=== PATIENT | female | born 1960 | race Caucasian/White ===

== ENCOUNTER 2023-11-06 14:22 | Observation (INO) ==
--- NOTE | 2023-11-06 14:50 | ED Triage Note ---
Date of Service November 06, 2023 Provider in Triage Author: Aleshia Villa History of Present Illness This patient was briefly evaluated while in triage. An abbreviated physical exam was performed. This patient is a 63-year-old Female who presents to the ED for evaluation of abdominal pain, vomiting, and diarrhea. Symptoms ongoing since Monday. Has history of C-diff and dehydration. Pain Left flank. Physical Exam VITALS: Vitals are noted on the nurse's note and reviewed by myself. GENERAL: This is a 63 year old female, in no acute distress, nondiaphoretic, well-developed well-nourished. SKIN: No obvious rashes, edema, erythema HEAD: Normocephalic atraumatic. EYES: Conjunctivae without injection, sclerae without icterus. NECK: No JVD. LUNGS: No retractions or accessory muscle use. MUSCULOSKELETAL: Normal gait. NEURO: Patient was alert and oriented to person place and time. No focal neurological deficits. Initial orders for labs and / or imaging were placed and patient was placed in the waiting area until a bed is available. Please see further documentation for the full ED course.
[2023-11-06] MEDS: SODIUM CHLORIDE 0.9% 1,000 ML IV STA (15:56)
[2023-11-06] MEDS: ONDANSETRON INJ 2 MG/ML 2 ML VIAL IV STA (15:56)
[2023-11-06 16:15] LABS: Basophils # (auto) 0.05 K/uL (0.00-0.20); Basophils % (auto) 0.6 %; Eosinophils # (auto) 0.02 K/uL (0.00-0.50); Eosinophils % (auto) 0.3 %; Hematocrit (blood only) 36.6 % (37.0-47.0); Immature Granulocytes # (auto) 0.03 K/uL (0.01-0.20); Immature Granulocytes % (auto) 0.4 %; Lymphocytes # (auto) 0.97 K/uL (1.20-3.40); Lymphocytes % (auto) 12.1 %; Mean Corpuscular Hemoglobin 30.9 pg (25.0-34.0); Mean Corpuscular Hgb Conc 32.8 g/dL (32.0-36.0); Mean Corpuscular Volume 94.3 fL (80.0-100.0); Mean Platelet Volume 8.7 fL (9.4-12.4); Monocytes # (auto) 0.36 K/uL (0.11-0.59); Monocytes % (auto) 4.5 %; Neutrophils # (auto) 6.56 K/uL (1.40-6.50); Neutrophils % (auto) 82.1 %; Platelet Count 339 K/uL (130-400); RDW Coefficient of Variation 13.2 % (11.5-14.5); RDW Standard Deviation 46.2 fL (36.4-46.3); Red Blood Count 3.88 M/uL (4.20-5.40); White Blood Count 7.99 K/ul (4.8-10.8)
[2023-11-06 16:32] LABS: Albumin Globulin Ratio 1.2 (0.9-2); Albumin Level 4.6 gm/dl (3.4-5.0); BUN Creatinine Ratio 27.8 (10-20); Bilirubin,Total 0.4 mg/dl (0.2-1.0); Calcium 9.8 mg/dl (8.6-10.3); Creatinine Clr Calc Pharmacy 22.4 ml/min; Est GFR (African American) 24.8 ml/min; Est GFR (Non-African American) 21.4 ml/min; Globulin 3.9 gm/dl (2.5-4.0); Potassium 4.8 mmol/L (3.5-5.1); Total Protein 8.5 gm/dl (6.0-8.3)
--- NOTE | 2023-11-06 16:43 | Emergency Department Note ---
Impression & Plan ANABELA (acute kidney injury), Diarrhea, Hyponatremia, Dehydration ED Provider Note NAME: GERTRUDE ANSARI AGE: 63 SEX: F : 1960 ARRIVES VIA: Walk-In INFORMANT: Patient ED PROVIDER(S): Earl Duarte DO CHIEF COMPLAINT: Diarrhea and left lower quadrant abdominal pain HPI: Patient is a 63-year-old female with a past medical history of breast cancer who just finished up chemotherapy back in June. She notes that on and Monday she started having left lower quadrant abdominal pain associated with diarrhea. The lower quadrant abdominal pain was sharp and stabbing but has improved and is now achy. She is going about 6-7 times a day. She denies any dysuria, urgency, or frequency. She noticed some blood in her stool on Monday but that has abated now. She has not had any blood since Monday. Denies any black or dark tarry stools. No dysuria, urgency, or frequency. She does have a history of previous C. difficile. No recent trips or travel. ADDITIONAL HISTORY OBTAINED: Per HPI Chronic Medical/Social Conditions Affecting Care: Per HPI PAST MEDICAL HISTORY:See Below PAST SURGICAL HISTORY:See Below FAMILY HISTORY:See Below SOCIAL HISTORY:See Below HOME MEDICATIONS:See Below ALLERGIES:See Below VITALS:See Below PHYSICAL EXAMINATION: GENERAL: Sitting up in bed, alert, well appearing, well nourished, no distress, non-toxic EYE EXAM: normal conjunctiva. OROPHARYNX: mucous membranes are moist LUNGS: Clear to auscultation. Normal chest wall mechanics HEART: no murmurs, S1 normal and S2 normal ABDOMEN: abdomen soft, non-tender, normo-active bowel sounds, no masses, no rebound or guarding. BACK: Back is symmetrical on inspection and there is no deformity, no midline tenderness, no CVA tenderness. SKIN: no rashes and no bruising UPPER EXTREMITIES: upper extremities are grossly normal. LOWER EXTREMITIES: No pitting edema. NEURO EXAM: Normal sensorium, cranial nerves II-XII grossly intact, normal speech, no gross weakness of arms, no gross weakness of legs. MEDICAL DECISION MAKING: Patient is a 63-year-old female who presents the ER for diarrhea and abdominal pain. IV was established blood work was obtained. Labs show no significant leukocytosis or anemia. INR unremarkable. BMP with mild hyponatremia 134. Creatinine at 2.37. External records were reviewed from [facility] in regards to her creatinines which showed history of her creatinines ranging from 1.0-1.4. Last 1 was back in June it was 1.3. Do favor this is likely her baseline 1.3-1.2. LFTs and bilirubin were unremarkable. Lipase was normal. UA was clean. She was given 2 L of normal saline. Ordered stool cultures. CT abdomen pelvis was unremarkable. She was updated bedside discussed with the hospitalist admitted for further workup. Consults/Care Managements Discussions: Per [facility] Triage Nursing notes reviewed. Limited review of prior medical records performed Vital Signs: reviewed and remarkable for no significant abnormalities Differential diagnosis: Differential diagnoses includes but is not limited to gastritis, peptic ulcer disease, GERD, gallbladder disease, pancreatitis, small bowel obstruction, appendicitis, diverticulitis, hernia, urinary tract infection, torsion, perforation, trauma, infectious. ER treatment provided: See below Diagnostics interpreted by me include EKG and cardiac monitoring as listed below: -Cardiac Monitoring: An order was placed for continuous cardiac monitoring. The monitor shows a rate of 70 with sinus rhythm. -ECG: none -Laboratory studies:Interpreted by me as stated above in MDM and shown below. 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) Status post partial mastectomy of right breast 06/19/20 - complicated by return to OR same day for evacuation of right breast hematoma Breast cancer, right Biopsy 05/26/20 Medical History (Updated 11/06/23 @ 19:30 by Earl Duarte DO) Depression Surgical History (Updated 07/29/20 @ 09:18 by Aisha Osman, FELISHA) History of dental surgery H/O tubal ligation History of sinus surgery Family History (Updated 07/29/20 @ 09:22 by Aisha Osman, FELISHA) Mother Dyslipidemia Thyroid disease Parkinsons Father , 86yo Seizure disorder Traumatic injuries to brain; Grandmother (Maternal) Breast cancer Family/Other Breast cancer Maternal cousin Family/Other Ovarian cancer Maternal great aunt Brother Thyroid disease Sleep apnea Hypertension Sister No problems noted. Son No problems noted. 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[employer];Caregiver also Feels Safe at Home: Yes Childhood Exposure to Second-Hand Smoke: No Diet: regular caffeine: No during the past year weight has: remained stable Allergies Allergies Allergy/AdvReac Type Severity Reaction Status Date / Time No Known Allergies Allergy Verified 11/06/23 19:05 Home Meds Home Medications Medication Instructions Recorded Confirmed acetaminophen 325 mg tablet 650 mg PO QID PRN Pain/Fever 07/29/20 11/06/23 (Tylenol) escitalopram oxalate 20 mg tablet 20 mg PO DAILY 11/06/23 11/06/23 lisinopril 20 mg tablet 20 mg PO DAILY 11/06/23 11/06/23 ondansetron HCl 8 mg tablet 8 mg PO Q8H PRN Nausea And Vomiting 11/06/23 11/06/23 Results & Data (ED) Vital Signs Vital Signs - 24 hr 11/06/23 14:48 11/06/23 17:30 11/06/23 17:33 Temperature 36.3 C L Temperature Source Temporal Artery Scan Pulse Rate 91 H 79 Pulse Rate [Apical] 82 Pulse Rhythm [Apical] Respiratory Rate 18 13 Respiratory Effort / Characteristics Non-Labored Non-Labored Respiratory Depth Normal Normal Respiratory Pattern Regular Regular Blood Pressure 116/72 Blood Pressure [Left Arm] 167/89 H Blood Pressure Mean 86 Blood Pressure Mean [Left Arm] 115 Pulse Oximetry 97 99 Oxygen Delivery Method Room Air Room Air Sepsis Recent Fever Within 48 Hours No Sepsis New/Unexplained Change in Mental Status N/A Sepsis Action Taken by Nursing No Action Required 11/06/23 18:56 11/06/23 19:20 Temperature Temperature Source Pulse Rate Pulse Rate [Apical] 73 Pulse Rhythm [Apical] Regular Respiratory Rate 16 Respiratory Effort / Characteristics Respiratory Depth Normal Respiratory Pattern Blood Pressure Blood Pressure [Left Arm] 139/76 Blood Pressure Mean Blood Pressure Mean [Left Arm] 97 Pulse Oximetry 100 100 Oxygen Delivery Method Room Air Room Air Sepsis Recent Fever Within 48 Hours Sepsis New/Unexplained Change in Mental Status Sepsis Action Taken by Nursing Laboratory Data 11/06/23 15:53 11/06/23 15:53 Lab Results 11/06/23 11/06/23 Range/Units 15:53 18:00 WBC 7.99 (4.8-10.8) K/ul RBC 3.88 L (4.20-5.40) M/uL Hgb 12.0 (12.0-16.0) g/dl Hct 36.6 L (37.0-47.0) % MCV 94.3 (80.0-100.0) fL MCH 30.9 (25.0-34.0) pg MCHC 32.8 (32.0-36.0) g/dL RDW Std Deviation 46.2 (36.4-46.3) fL RDW Coeff of Aaron 13.2 (11.5-14.5) % Plt Count 339 (130-400) K/uL MPV 8.7 L (9.4-12.4) fL Immature Gran % (Auto) 0.4 % Neut % (Auto) 82.1 % Lymph % (Auto) 12.1 % [place] % (Auto) 4.5 % Eos % (Auto) 0.3 % Baso % (Auto) 0.6 % Neut # (Auto) 6.56 H (1.40-6.50) K/uL Lymph # (Auto) 0.97 L (1.20-3.40) K/uL [place] # (Auto) 0.36 (0.11-0.59) K/uL Eos # (Auto) 0.02 (0.00-0.50) K/uL Baso # (Auto) 0.05 (0.00-0.20) K/uL Immature Gran # (Auto) 0.03 (0.01-0.20) K/uL PT 10.4 (9.0-12.0) Seconds INR 1.0 (0.9-1.1) APTT 26 (21-31) Seconds PTT Ratio 1.0 Sodium 134 L (136-145) mmol/L Potassium 4.8 (3.5-5.1) mmol/L Chloride 103 (98-107) mmol/L Carbon Dioxide 21 (21-32) mmol/L Anion Gap 10 (3-11) BUN 66 H (6-23) mg/dl Creatinine 2.37 H (0.6-1.2) mg/dl Est Cr Clr Drug Dosing 22.4 ml/min Est GFR ( Amer) 24.8 ml/min Est GFR (Non-Af Amer) 21.4 ml/min BUN/Creatinine Ratio 27.8 H (10-20) Glucose 80 (70-99(Fasting)) mg/dl Calcium 9.8 (8.6-10.3) mg/dl Total Bilirubin 0.4 (0.2-1.0) mg/dl AST 20 (13-39) U/L ALT 14 (7-52) U/L Alkaline Phosphatase 77 (34-104) U/L Total Protein 8.5 H (6.0-8.3) gm/dl Albumin 4.6 (3.4-5.0) gm/dl Globulin 3.9 (2.5-4.0) gm/dl Albumin/Globulin Ratio 1.2 (0.9-2) Lipase 16 (11-82) U/L Urine Color Yellow Urine Appearance Clear (Clear) Urine pH 5.0 (4.5-7.5) Ur Specific [place] 1.013 (1.000-1.030) Urine Protein Negative (Negative) Urine Glucose (UA) Negative (Negative) Urine Ketones Trace H (Negative) Urine Blood Negative (Negative) Urine Nitrite Negative (Negative) Urine Bilirubin Negative (Negative) Urine Urobilinogen Negative (Negative) Ur Leukocyte Esterase Negative (Negative) Administered Medications Sodium Chloride (Nss) 1,000 mls @ 999 mls/hr IV .Q1H1M ONE Stop: 11/06/23 19:29 Last Admin: 11/06/23 18:41 Dose: 999 mls/hr Documented By: MONTSERRAT Discontinued Medications Sodium Chloride (Nss) 1,000 mls @ 999 mls/hr IV .Q1H1M STA Stop: 11/06/23 15:50 Last Infusion: 11/06/23 17:59 Dose: Infused Documented By: Admin: 11/06/23 15:56 Dose: 999 mls/hr Documented By: JOHN Ondansetron HCl (Ondansetron Inj 2 Mg/Ml 2 Ml Vial) 4 mg IV NOW STA Stop: 11/06/23 14:51 Last Admin: 11/06/23 15:57 Dose: Not Given Documented By: JOHN Imaging Data Radiologist's Impression: Abdomen/Pelvis CT 11/06/23 14:50 CT SCAN OF THE ABDOMEN AND PELVIS WITHOUT IV CONTRAST CLINICAL HISTORY: Left flank pain. COMPARISON STUDY: Abdominal ultrasound dated 03/30/2012. TECHNIQUE: CT scan of the abdomen and pelvis is performed from the lung bases to the proximal femora. Images are reviewed in the axial, sagittal, and coronal planes. IV contrast was not administered for this examination. A dose lowering technique was utilized adhering to the principles of ALARA. CT DOSE: 1069.03 mGy.cm FINDINGS: Lung bases: The heart is normal in size and without pericardial effusion. The lung bases are clear noting mild dependent atelectasis. Findings suggest a history of previous right mastectomy. There is a small hiatal hernia. Liver: The unenhanced liver is normal in size, contour, and attenuation. There is no intrahepatic biliary ductal dilatation. Gallbladder: Unremarkable. Spleen: Normal in size and attenuation. Pancreas: The unenhanced pancreas is moderately atrophic and grossly unremarkable. Adrenal glands: Unremarkable. Kidneys: The unenhanced kidneys are normal in size and without hydronephrosis. No renal calculi are identified and no ureteral stone is seen. There is no evidence of contour deforming renal mass lesion. Abdominal vasculature: The abdominal aorta is normal in course and caliber noting mild atherosclerotic calcification. Bowel: There is no bowel obstruction. Question mild wall thickening of the left colon with faint surrounding infiltration. The appendix is multiple visualized and normal. Peritoneum: There is no intraperitoneal free air or abdominal ascites. There is a small fat-containing umbilical hernia. Lymphadenopathy: None. Pelvic viscera: The bladder, uterus, and adnexa are normal as visualized. Skeletal structures: No lytic or blastic lesions are seen. IMPRESSION: 1. Question a mild nonspecific colitis of the left colon. Correlate clinically. 2. No renal calculi are identified and there is no ureteral stone. 3. Additional findings as above. ACT 112: Negative or not required by law. Electronically signed by: Chandler Silva M.D. 11/06/2023 4:43 PM Discharge Plan Visit Data Chief Complaint: GI Assessment Stated Complaint: GI ISSUES, FLANK PAIN, DIARHEA ED Provider: Earl Duarte Discharge Problem: ANABELA (acute kidney injury), Diarrhea, Hyponatremia, Dehydration Forms Stand Alone Forms: My [facility] Prescriptions Prescriptions: No Action acetaminophen [Tylenol] 325 mg tablet 650 mg PO QID PRN (Reason: Pain/Fever) ondansetron HCl 8 mg tablet 8 mg PO Q8H PRN (Reason: Nausea And Vomiting) lisinopril 20 mg tablet 20 mg PO DAILY escitalopram oxalate 20 mg tablet 20 mg PO DAILY Referrals Referrals: Magaly Covington CRNP [Primary Care Provider] - Discharge Problem: Diarrhea Qualifiers: Diarrhea type: infectious Qualified Code(s): A09 - Infectious gastroenteritis and colitis, unspecified
[2023-11-06 16:53] LABS: Partial Thromboplastin Time 26 Seconds (21-31); Prothrombin Time 10.4 Seconds (9.0-12.0)
[2023-11-06 18:10] LABS: Appearance Urine Clear (Clear); Bilirubin Urine Negative (Negative); Blood Urine Negative (Negative); Color Urine Yellow; Glucose Urine UA Negative (Negative); Ketones Urine Trace (Negative); Leukocyte Esterase Urine Negative (Negative); Nitrite Urine Negative (Negative); Protein Urine Negative (Negative); Specific Gravity Urine 1.013 (1.000-1.030); Urobilinogen Urine Negative (Negative)
[2023-11-06] MEDS: SODIUM CHLORIDE 0.9% 1,000 ML IV ONE (18:41)
--- NOTE | 2023-11-06 19:13 | History & Physical Report ---
Date of Service November 06, 2023 Assessment & Plan (1) Diarrhea: Plan: Suspected colitis as seen on CT - already improving Stool and c. diff PCR Imodium if negative Follow up with GI to consider colonoscopy as outpatient (2) ANABELA (acute kidney injury): Plan: Baseline Cr 1.37 October 04, 2023 Cr 2.37 on arrival Hold lisinopril LR @ 200ml/hr overnight, repeat level in AM (3) Dehydration: Plan VTE Prophylaxis - heparin 5000 units SQ BID Diet - low fiber Disposition - admit to med/surg Admission and Anticipated Discharge Date Admission Date: November 06, 2023 History of Present Illness Chief Complaint: Abdominal pain, vomiting, diarrhea Primary Care Provider: [place] Dang Bryant Galeano is a 63 year old female who presents to the ER with LUQ abdominal pain, vomiting and diarrhea since Monday. Symptoms started night into Monday morning. Initially with nausea, vomiting and sweating. She felt like she couldn't go to bathroom. After 8s she started having waves of left sided abdominal pain. Diarrhea followed. On Monday her diarrhea was mucus with blood. Monday still mucus but no blood. Took Pepto-Bismol but just turned it dark brown. No bowel movement since this morning. No fever, chills, acute respiratory or urinary symptoms. Chronic cough which she blames on lisinopril and no worse than usual. She finished chemotherapy for breast cancer in June. During treatment had episode of diarrhea and separate episode of c. diff (July 2022). Allergies Allergy/AdvReac Type Severity Reaction Status Date / Time No Known Allergies Allergy Verified 11/06/23 19:05 Home Medications Medication Instructions Recorded Confirmed Type acetaminophen 325 mg tablet 650 mg PO QID PRN Pain/Fever 07/29/20 11/06/23 History (Tylenol) escitalopram oxalate 20 mg tablet 20 mg PO DAILY 11/06/23 11/06/23 History lisinopril 20 mg tablet 20 mg PO DAILY 11/06/23 11/06/23 History ondansetron HCl 8 mg tablet 8 mg PO Q8H PRN Nausea And Vomiting 11/06/23 11/06/23 History Past Med/Surg History Problem List (Updated 11/06/23 @ 19:30 by Earl Duarte DO) Dehydration (Acute) Hyponatremia (Acute) Diarrhea (Acute) ANABELA (acute kidney injury) (Acute) 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) Status post partial mastectomy of right breast 06/19/20 - complicated by return to OR same day for evacuation of right breast hematoma Breast cancer, right Biopsy 05/26/20 Medical History (Updated 11/06/23 @ 19:30 by Earl Duarte DO) Depression Surgical History (Updated 07/29/20 @ 09:18 by Aisha Osman, FELISHA) History of dental surgery H/O tubal ligation History of sinus surgery Family History (Updated 07/29/20 @ 09:22 by Aisha Osman, FELISHA) Mother Dyslipidemia Thyroid disease Parkinsons Father , 86yo Seizure disorder Traumatic injuries to brain; Grandmother (Maternal) Breast cancer Family/Other Breast cancer Maternal cousin Family/Other Ovarian cancer Maternal great aunt Brother Thyroid disease Sleep apnea Hypertension Sister No problems noted. Son No problems noted. 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[employer];Caregiver also Feels Safe at Home: Yes Safety Concerns: Feels Safe At This Time Childhood Exposure to Second-Hand Smoke: No Diet: regular caffeine: No during the past year weight has: remained stable Assistive Devices: Glasses Review of Systems Review of Systems: All systems reviewed & are unremarkable except as noted in HPI & below Physical Exam Constitutional: WD/WN, vitals as above ENMT: Mouth: oral mucous membranes not dry Respiratory: normal respiratory effort, lungs clear to auscultation Cardiovascular: RRR, no murmur, no edema Gastrointestinal (Abdomen): Inspection/Auscultation: abdomen normal to inspection; abdomen not distended Percussion/Palpation: + abdomen tender (LLQ) and abdomen soft; no guarding and abdomen not rigid Skin: no rashes, warm and dry Neurologic: moves all extremities and awake; not confused Psychiatric: A+Ox3, euthymic affect Genitourinary: no CVA tenderness Results & Data Results & Data Vital Signs (Past 12 Hours) Vital Signs Temp Pulse Pulse Resp BP BP Pulse Ox 11/06/23 18:56 100 11/06/23 17:33 79 11/06/23 17:30 82 13 167/89 H 99 11/06/23 14:48 36.3 C L 91 H 18 116/72 97 O2 Del Method 11/06/23 18:56 Room Air 11/06/23 17:33 11/06/23 17:30 Room Air 11/06/23 14:48 Room Air Laboratory Results Abnormal lab results 11/06/23 11/06/23 Range/Units 15:53 18:00 RBC 3.88 L (4.20-5.40) M/uL Hct 36.6 L (37.0-47.0) % MPV 8.7 L (9.4-12.4) fL Neut # (Auto) 6.56 H (1.40-6.50) K/uL Lymph # (Auto) 0.97 L (1.20-3.40) K/uL Sodium 134 L (136-145) mmol/L BUN 66 H (6-23) mg/dl Creatinine 2.37 H (0.6-1.2) mg/dl BUN/Creatinine Ratio 27.8 H (10-20) Total Protein 8.5 H (6.0-8.3) gm/dl Urine Ketones Trace H (Negative) Diagnostic Findings CT SCAN OF THE ABDOMEN AND PELVIS WITHOUT IV CONTRAST CLINICAL HISTORY: Left flank pain. COMPARISON STUDY: Abdominal ultrasound dated 03/30/2012. TECHNIQUE: CT scan of the abdomen and pelvis is performed from the lung bases to the proximal femora. Images are reviewed in the axial, sagittal, and coronal planes. IV contrast was not administered for this examination. A dose lowering technique was utilized adhering to the principles of ALARA. CT DOSE: 1069.03 mGy.cm FINDINGS: Lung bases: The heart is normal in size and without pericardial effusion. The lung bases are clear noting mild dependent atelectasis. Findings suggest a history of previous right mastectomy. There is a small hiatal hernia. Liver: The unenhanced liver is normal in size, contour, and attenuation. There is no intrahepatic biliary ductal dilatation. Gallbladder: Unremarkable. Spleen: Normal in size and attenuation. Pancreas: The unenhanced pancreas is moderately atrophic and grossly unremarkable. Adrenal glands: Unremarkable. Kidneys: The unenhanced kidneys are normal in size and without hydronephrosis. No renal calculi are identified and no ureteral stone is seen. There is no evidence of contour deforming renal mass lesion. Abdominal vasculature: The abdominal aorta is normal in course and caliber noting mild atherosclerotic calcification. Bowel: There is no bowel obstruction. Question mild wall thickening of the left colon with faint surrounding infiltration. The appendix is multiple visualized and normal. Peritoneum: There is no intraperitoneal free air or abdominal ascites. There is a small fat-containing umbilical hernia. Lymphadenopathy: None. Pelvic viscera: The bladder, uterus, and adnexa are normal as visualized. Skeletal structures: No lytic or blastic lesions are seen. IMPRESSION: 1. Question a mild nonspecific colitis of the left colon. Correlate clinically. 2. No renal calculi are identified and there is no ureteral stone. 3. Additional findings as above. Medications Administered ER Medications Given: NSS 1L bolus x2 Ondansetron 4mg IV ECG Additional Comments: ordered Code Status & VTE Plan Code Status Full VTE Prophylaxis Plan VTE Prophylaxis will be ordered: Yes PG Care Time/CCT Total # of Minutes Spent Total Time Spent with Patient: Total time spent is greater than 50% in coordination of care (as documented) at patient's floor/unit and/or counseling patient: Coding Level of Care Code 80739 INT INP/OBS CARE 2/55MIN Diagnoses Diarrhea A09 Diarrhea type: infectious ANABELA (acute kidney injury) N17.9 Dehydration E86.0 (1) Diarrhea Diarrhea type: infectious Qualified Code(s): A09 - Infectious gastroenteritis and colitis, unspecified
[2023-11-06] MEDS: LACTATED RINGER'S 1,000 ML IV SCH (20:08)
[2023-11-06] MEDS ORDERED: ACETAMINOPHEN 325 MG TAB PO PRN (22:53)
[2023-11-06] MEDS ORDERED: ONDANSETRON INJ 2 MG/ML 2 ML VIAL IV PRN (22:53)
[2023-11-07] MEDS: HEPARIN SOD 5,000 UNIT/0.5 ML VIAL SQ SCH (00:48)
--- OUTSIDE RECORDS SUMMARY | 2023-11-07 02:27 | External Medical Summary | Continuity of Care Document ---
Author Name Unknown Organization [facility] Address [address] [place] [address] JORGE DIAZ [id number] Care Team Providers Care Wireless Cellular Technician Name Role Phone Magaly Covington Primary Care Physician [phone] Encounter [facility] [id number] Date(s): 10/04/23 - 10/04/23 [facility] [id number], [place] [address]- [phone] Encounter Diagnosis Breast cancer in female(Discharge Diagnosis) - 10/04/23 HER2-positive carcinoma of breast(Discharge Diagnosis) - 10/04/23 Post-menopausal(Discharge Diagnosis) - 10/04/23 Discharge Disposition: Home or Self Care Attending Physician: MD Paddy, Maggy Ferris Referring Physician: WASHINGTON Covington Shari A Allergies, Adverse Reactions, Alerts No Known Allergies Assessment and Plan Extracted from: Title:Port removal 10/17/2023 Author:JORGE Conner Holly Date:10/05/23 INTERVENTIONAL RADIOLOGY OUTPATIENT NOTE Name: GERTRUDE ANSARI Patient Number: [id number] : 1960 Date of Service: 10/05/2023 PROCEDURE: IR Venous Port Removal SCHEDULED DATE: 10/17/2023 Diet and Medications: No food after midnight except for clear non-carbonated liquids up to 1 hour prior to arrival time. Take all prescribed medications with small sips of water except as directed below. Other Orders: Immunizations Given and Recorded Vaccine Date Status Refusal Reason influenza virus vaccine, inactivated 1 02/09/23 Gi janet influenza virus vaccine, inactivated 02/28/19 Give n influenza virus vaccine, inactivated 02/01/18 Give n SARS-CoV-2 (COVID-19) mRNA-1273 vaccine 04/22/21 R ecorded SARS-CoV-2 (COVID-19) mRNA-1273 vaccine 2 06/12/20 Recorded SARS-CoV-2 (COVID-19) mRNA-1273 vaccine 3 05/14/20 Recorded hepatitis B adult vaccine 07/03/18 Given hepatitis B adult vaccine 02/01/18 Given hepatitis B adult vaccine 12/28/17 Given tetanus/diphtheria/pertuss, acel (Tdap) 12/01/17 G iven tetanus/diphtheria/pertuss, acel (Tdap) 03/21/08 R ecorded 1Result Comment: Linda Gomez Lpn 2Result Comment: 2021-04-23: Historical information-source unspecified 3Result Comment: 2021-04-23: Historical information-source unspecified Medications Claritin Start: 08/03/22 8:33:00 AM EDT, See Instructions, 1 po daily PRN, PRN: as needed for allergy symptoms Start Date: 08/03/22 Status: Ordered escitalopram 20 mg oral tablet Start: 04/11/23 3:01:00 PM EST, See Instructions, Disp# 30 tab, Refills: 11, TAKE ONE TABLET BY MOUTH EVERY DAY, Pharmacy: [facility] Start Date: 04/11/23 Status: Ordered lisinopril 20 mg oral tablet Start: 04/11/23 3:01:00 PM EST, 1 tab, PO, Daily, Disp# 30 tab, Refills: 11, Pharmacy: [email or web address] Start Date: 04/11/23 Status: Ordered ondansetron 8 mg oral tablet Start: 10/04/23 11:26:00 AM EDT, 8 mg =, PO, q8h, Disp# 50 tab, Refills: 3, PRN: nausea and vomiting, Pharmacy: [facility] Start Date: 10/04/23 Status: Ordered Tylenol Start: 05/04/17 8:30:00 AM EST, 500 mg =, PO, as needed Start Date: 05/04/17 Status: Ordered Mental Status 10/04/23 Barriers to Learning one year Vision imp airment, Other: glasses Mandatory Health Literacy Documentation Yes Health Literacy Communication Barriers N ever Primary Language Trinidadian Problem List Condition Confirmation Course Effective Dates Status Health Status Informant Anxiety Confirmed Active Depression Confirmed Active TMJ (dislocation of temporomandibular joint) Confirmed Active Heartburn Confirmed Active Hiatal hernia Confirmed Active S/P bilateral mastectomy Confirmed Active History of bilateral breast cancer Confirmed Active Hypertension Confirmed Active Malignant neoplasm of left breast Confirmed Active Pre-op exam Confirmed Active Hypovitaminosis D Confirmed Active Diagnosis Diagnosis Type Effective Dates Health Status Cl inical Service Informant HER2-positive carcinoma of breast Discharge Diagnosis 10/04/23 Non-Specified Post-menopausal Discharge Diagnosis 10/04/23 Non-Specified Breast cancer in female Discharge Diagnosis 10/04/23 Non-Specified Procedures Procedure Date Related Diagnosis Body Site Status Bilateral mastectomy 12/23/22 Comp leted Partial mastectomy of left breast 06/10/22 Completed Biopsy of breast 1 03/28/22 Comple lev Right breast 2 06/19/20 Completed Biopsy of breast 3, 4 05/26/20 Com pleted X-ray 5 11/02/18 Completed MRI of breast 6 Completed oral surgery Completed sinus surgery Completed tubal ligation Completed 1Left DCIS 2partial mastectomy 3Right breat 4Pathology: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 Nuclear grade: 3 Greatest linear extent: 2mm. Necrosis: none. Microcalcifications: Not identified. Prognostic markers: ER:Positive, strong staining(91-100%). MT: Positive, strong staining ((21-30%) 5xr lumbar spine 2-3v there is a mild dextroscoliosis of manuelito lubar spine. vertebral body heights are maintained. there isno fracture or suspicious lesion. 6Both Breasts. ACR BI-RADS Category 0: Incomplete evaluation: Need Additional Imaging Evaluation 1.Segmental non-mass enhancement seen with the left 12:00 breast extending to the subareolar breast, measuring approximately 2.6x4.8x4.2 cm in extent. Findings are indeterminate and recommend targeted ultrasound for further evaluation. If a corresponding sonographic finding is seen, then would recommend MRI guided biopsy. 2. Expected posttreatment changes in the right breast status post lumpectyomy, without MRI evidenceof malignancy in the right breast. 3. Small hital hernia. Results Laboratory List Name Date Complete Blood Count w Differential (CBC ,DIFFH) 10/04/23 Comprehensive Metabolic Panel (COMP META B PANEL) 10/04/23 Lactate Dehydrogenase (LD) 10/04/23 Most recent to oldest [Reference Range]: 1 eGFR CKD-EPI [>60 mL/min/1.73 m2] 44 mL/ min/1.73 m2 *LOW* (10/04/23 9:44 AM) Estimated CrCl 39.67 mL/min (10/04/23 10:51 AM) MPV [9.0-12.2 fL] 8.2 fL *LOW* (10/04/23 9:44 AM) Immature Gran% 0.2 % (10/04/23 9:44 AM) Neut% 71.2 % (10/04/23 9:44 AM) Lymph% 19.8 % (10/04/23 9:44 AM) [place]% 6.7 % (10/04/23 9:44 AM) Baso% 1.0 % (10/04/23 9:44 AM) Eos% 1.1 % (10/04/23 9:44 AM) Immat Gran, Abs [0-0.4 K/uL] 0.01 K/uL (10/04/23 9:44 AM) Neut, Abs [2.0-7.7 K/uL] 3.74 K/uL (10/04/23 9:44 AM) Lymph, Abs [1.0-3.4 K/uL] 1.04 K/uL (10/04/23 9:44 AM) [place], Abs [0-1.0 K/uL] 0.35 K/uL (10/04/23 9:44 AM) Baso, Abs [0-0.1 K/uL] 0.05 K/uL (10/04/23 9:44 AM) Eos, Abs [0-0.5 K/uL] 0.06 K/uL (10/04/23 9:44 AM) Type of Diff: AUTO *Unknown* (10/04/23 9:44 AM) RDW [11.5-14.2 %] 12.8 % (10/04/23 9:44 AM) Anion Gap [5-14 mmol/L] 14 mmol/L (10/04/23 9:44 AM) Alb [3.5-5.2 g/dL] 4.6 g/dL (10/04/23 9:44 AM) Alk Phos [35-115 unit/L] 89 unit/L 1 (10/04/23 9:44 AM) ALT [0-33 unit/L] 17 unit/L (10/04/23 9:44 AM) AST [0-32 unit/L] 17 unit/L (10/04/23 9:44 AM) BUN [6-23 mg/dL] 34 mg/dL *HI* (10/04/23 9:44 AM) Ca [8.4-10.2 mg/dL] 9.4 mg/dL (10/04/23 9:44 AM) Cl- [98-107 mmol/L] 100 mmol/L (10/04/23 9:44 AM) HCO3 [22-29 mmol/L] 22 mmol/L (10/04/23 9:44 AM) Cret [0.60-1.00 mg/dL] 1.37 mg/dL *HI* (10/04/23:44 AM) Glu [74-109 mg/dL] 91 mg/dL 2 (10/04/23 9:44 AM) Hct [35-44 %] 35.0 % (10/04/23:44 AM) Hgb [11.7-15.0 g/dL] 11.2 g/dL *LOW* (10/04/23 9:44 AM) K [3.5-5.1 mmol/L] 4.9 mmol/L (10/04/23 9:44 AM) LDH [135-250 unit/L] 169 unit/L (10/04/23 9:44 AM) MCH [28-33 pg] 31.5 pg (10/04/23 9:44 AM) MCHC [32-36 g/dL] 32.0 g/dL (10/04/23 9:44 AM) MCV [81-96 fL] 98.3 fL *HI* (10/04/23 9:44 AM) Na [136-145 mmol/L] 136 mmol/L (10/04/23 9:44 AM) Plts [150-350 K/uL] 251 K/uL (10/04/23 9:44 AM) RBC [3.90-5.00 M/uL] 3.56 M/uL *LOW* (10/04/23 9:44 AM) T Bili [0.0-1.2 mg/dL] 0.2 mg/dL (10/04/23 9:44 AM) Prot [6.4-8.3 g/dL] 7.9 g/dL (10/04/23 9:44 AM) WBC [4.0-10.4 K/uL] 5.25 K/uL (10/04/23 9:44 AM) 1Result Comment: Low levels of ALKP may indicate a deficiency in zinc, magnesium, or malnutritionbutcan also be an indicator of a rare genetic disease hypophosphatasia (HPP). 2Result Comment: ADA recommendation for FASTING Serum/Plasma Glucose: Normal: 70-100 mg/dL Prediabetes: 100-125 mg/dL Diabetes: 126 mg/dL or higher Vital Signs Most recent to oldest [Reference Range]: 1 Height 155 cm (10/04/23 11:01 AM) Patient Weight 72.7 kg (10/04/23 11:01 AM) Body Mass Index 30.26 kg/m2 (10/04/23 11:01 AM) Temperature [36.5-37.9 DegC] 35.8 DegC *LOW* (10/04/23 11:01 AM) Heart Rate 71 bpm (10/04/23 11:01 AM) Respiratory Rate 18 br/min (10/04/23 11:01 AM) Blood Pressure 144/67mmHg (10/04/23 11:01 AM) Cuff Pulse Pressure 77 mmHg (10/04/23 11:01 AM) BP Location # 1 Left Arm (10/04/23 11:01 AM) Social History Social History Type Response Smoking Status Never smoked cigaret joon Sex Female Interventional Rad Outpt Note * JASPER Conner, Brittany: PERFORM Event Display: Interventional Rad Outpt Note Authored Date: [id number] INTERVENTIONAL RADIOLOGY OUTPATIENT NOTE Name: GERTRUDE ANSARI Patient Number: [id number] : 1960 Date of Service: 10/05/2023 PROCEDURE: IR Venous Port Removal SCHEDULED DATE: 10/17/2023 Diet and Medications: No food after midnight except for clear non-carbonated liquids up to 1 hour prior to arrival time. Take all prescribed medications with small sips of water except as directed below. Other Orders: Electronic Signature on File Electronically Reviewed/Signed by: JORGE Cook Author Signature Dt/Tm:10/05/2023 09:53 AM [facility] Patient Care team information Care Team Personnel Name: Blayne Gerardo Amy E Position: Pharmacist Member Role: Pharmacy - Lifetime Address: Address: [place] [address] [place] Name: Blayne Solares Christine A Position: Pharmacist Schedule II Member Role: Pharmacy - Lifetime Name: Blayne Cox Kimberly Position: Pharmacist BCMA Member Role: Pharmacy - Lifetime Address: Address: [address] Name: Yamileth Morales Position: MOA Schedule II Member Role: HIS Lifetime Name: WASHINGTON Covington Shari A Position: Nurse Pract - Family Med Member Role: Primary Care Provider Address: Address: [address] [place] [address] Care Team Related Persons Name: SANDRINE ANSARI Address: [facility] [place] Address: home [address] [facility] JORGE MCCORMICK [id number]
--- OUTSIDE RECORDS SUMMARY | 2023-11-07 02:27 | External Medical Summary | Continuity of Care Document ---
Author Name Unknown Organization [facility] Address [address] [place] D[place] [id number] Care Team Providers Care Mine Laborer Name Role Phone Magaly Covington Kaiser Primary Care Physician [phone] Encounter [facility] [id number] Date(s): 07/05/23 - 07/05/23 [facility] [address] [place] [address]- [phone] Discharge Disposition: Home or Self Care Attending Physician: MD Thomason Monali K Referring Physician: MD Thomason Monali K Allergies, Adverse Reactions, Alerts No Known Allergies Immunizations Given and Recorded Vaccine Date Status [...] information-source unspecified Medications Claritin Start: 08/03/22 8:33:00 EDT, See Instructions, 10 mg PO daily as needed priorto Neulasta Start Date: 08/03/22 Status: Ordered escitalopram 20 mg oral tablet Start: 04/11/23 15:01:00 EST, See Instructions, Disp# 30 tab, Refills: 11, TAKE ONE TABLET BY MOUTHEVERY DAY, Pharmacy: [facility] Start Date: 04/11/23 Status: Ordered lisinopril 20 mg oral tablet Start: 04/11/23 15:01:00 EST, 1 tab, PO, Daily, Disp# 30 tab, Refills: 11, Pharmacy: [id number] Start Date: 04/11/23 Status: Ordered ondansetron 8 mg oral tablet Start: 04/05/23 13:22:00 EST, 8 mg =, PO, q8h, Disp# 30 tab, Refills: 3, PRN: nausea and vomiting, Pharmacy: [facility] Start Date: 04/05/23 Status: Ordered prochlorperazine 10 mg oral tablet Start: 07/07/22 7:00:00 EDT, 10 mg =, PO, q6h, Disp# 40 tab, Refills: 5, PRN: nausea and vomiting, Pharmacy: [facility] Start Date: 07/07/22 Status: Ordered Tylenol Start: 05/04/17 8:30:00 EST, 500 mg =, PO, as needed Start Date: 05/04/17 Status: Ordered Problem List Condition Confirmation Course Effective Dates Status Health Status Informant Anxiety Confirmed Active Depression Confirmed Active TMJ (dislocation of temporomandibular joint) Confirmed Active Heartburn Confirmed Active Hiatal hernia Confirmed Active Hypertension Confirmed Active 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 Prognostic markers: ER:Positive, strong staining(91-100%). OK: Positive, strong staining ((21-30%) 5xr lumbar spine [...] Complete Blood Count w Differential (CBC ,DIFFH) 07/05/23 Comprehensive Metabolic Panel (COMP META B PANEL) 07/05/23 Most recent to oldest [Reference Range]: 1 eGFR CKD-EPI [>60 mL/min/1.73 m2] 58 mL/ min/1.73 m2 *LOW* (07/05/23 7:51 AM) Estimated CrCl 48.61 mL/min (07/05/23 8:18 AM) MPV [9.0-12.2 fL] 8.2 fL *LOW* (07/05/23 7:51 AM) Immature Gran% 0.3 % (07/05/23 7:51 AM) Neut% 66.7 % (07/05/23 7:51 AM) Lymph% 22.9 % (07/05/23 7:51 AM) [place]% 7.1 % (07/05/23 7:51 AM) Baso% 1.0 % (07/05/23 7:51 AM) Eos% 2.0 % (07/05/23 7:51 AM) Immat Gran, Abs [0-0.4 K/uL] 0.02 K/uL (07/05/23 7:51 AM) Neut, Abs [2.0-7.7 K/uL] 3.93 K/uL (07/05/23 7:51 AM) Lymph, Abs [1.0-3.4 K/uL] 1.35 K/uL (07/05/23 7:51 AM) [place], Abs [0-1.0 K/uL] 0.42 K/uL (07/05/23 7:51 AM) Baso, Abs [0-0.1 K/uL] 0.06 K/uL (07/05/23 7:51 AM) Eos, Abs [0-0.5 K/uL] 0.12 K/uL (07/05/23 7:51 AM) Type of Diff: AUTO *Unknown* (07/05/23 7:51 AM) RDW [11.5-14.2 %] 14.5 % *HI* (07/05/23 7:51 AM) Anion Gap [5-14 mmol/L] 14 mmol/L (07/05/23 7:51 AM) Alb [3.5-5.2 g/dL] 4.2 g/dL (07/05/23 7:51 AM) Alk Phos [35-115 unit/L] 82 unit/L 1 (07/05/23 7:51 AM) ALT [0-33 unit/L] 23 unit/L (07/05/23 7:51 AM) AST [0-32 unit/L] 19 unit/L (07/05/23 7:51 AM) BUN [6-23 mg/dL] 37 mg/dL *HI* (07/05/23 7:51 AM) Ca [8.4-10.2 mg/dL] 9.1 mg/dL (07/05/23 7:51 AM) Cl- [98-107 mmol/L] 105 mmol/L (07/05/23 7:51 AM) HCO3 [22-29 mmol/L] 21 mmol/L *LOW* (07/05/23 7:51 AM) Cret [0.60-1.00 mg/dL] 1.09 mg/dL *HI* (07/05/23 7:51 AM) Glu [74-109 mg/dL] 94 mg/dL 2 (07/05/23 7:51 AM) Hct [35-44 %] 30.9 % *LOW* (07/05/23 7:51 AM) Hgb [11.7-15.0 g/dL] 10.0 g/dL *LOW* (07/05/23 7:51 AM) K [3.5-5.1 mmol/L] 4.8 mmol/L (07/05/23 7:51 AM) MCH [28-33 pg] 31.2 pg (07/05/23 7:51 AM) MCHC [32-36 g/dL] 32.4 g/dL (07/05/23 7:51 AM) MCV [81-96 fL] 96.3 fL *HI* (07/05/23 7:51 AM) Na [136-145 mmol/L] 140 mmol/L (07/05/23 7:51 AM) Plts [150-350 K/uL] 299 K/uL (07/05/23 7:51 AM) RBC [3.90-5.00 M/uL] 3.21 M/uL *LOW* (07/05/23 7:51 AM) T Bili [0.0-1.2 mg/dL] 0.1 mg/dL (07/05/23 7:51 AM) Prot [6.4-8.3 g/dL] 7.2 g/dL (07/05/23 7:51 AM) WBC [4.0-10.4 K/uL] 5.90 K/uL (07/05/23 7:51 AM) 1Result Comment: Low levels of ALKP may indicate a deficiency in zinc, magnesium, or malnutritionbutcan also be an indicator of a rare genetic disease hypophosphatasia (HPP). 2Result Comment: ADA recommendation for FASTING Serum/Plasma Glucose: Normal: 70-100 mg/dL Prediabetes: 100-125 mg/dL Diabetes: 126 mg/dL or higher Social History Social History Type Response Smoking Status Never smoked cigaret joon Sex Female Patient Care team information Care Team Personnel Name: Blayne Gerardo Amy E Position: Pharmacist Member Role: Pharmacy - Lifetime Address: Address: [address] [address] Name: Blayne Solares Christine A Position: Pharmacist Schedule II Member Role: Pharmacy - Lifetime Name: Blayne Cox Kimberly Position: Pharmacist BCMA Member Role: Pharmacy - Lifetime Address: Address: [address] [address] [place] Name: JASPER Brambila Jordan Z Position: Physician Licensed And Certified Midwife - Hem/Onc Member Role: Lifetime Relationship Address: Address: [address] [place] [address] [place] Name: Yamileth Morales Position: MOA Schedule II Member Role: HIS Lifetime Name: WASHINGTON Covington Shari A Position: Nurse Pract - Family Med Member Role: Primary Care Provider Address: Address: [address] [place] [address], [place] [address] Care Team Related Persons Name: SANDRINE ANSARI Address: [place] Address: home [address] [facility] [place] CLRAK [id number]
--- OUTSIDE RECORDS SUMMARY | 2023-11-07 02:27 | External Medical Summary | Continuity of Care Document ---
Author Name Unknown Organization [facility] Address [address] [place] [id number] Care Team Providers Care Firearms Expert Name Role Phone Magaly Covington Primary Care Physician [phone] Encounter [facility] [id number] Date(s): 10/04/23 - 10/04/[address] [phone] Discharge Disposition: Home or Self Care Attending Physician: WASHINGTON Velazquez Kathy N Referring Physician: WASHINGTON Velazquez Kathy N Allergies, Adverse Reactions, Alerts No Known Allergies [...] ONE TABLET BY MOUTH EVERY DAY, Pharmacy: [facility] Start Date: 04/11/23 Status: Ordered lisinopril 20 mg oral tablet Start: 04/11/23 3:01:00 PM EST, 1 tab, PO, Daily, Disp# 30 tab, Refills: 11, Pharmacy: [facility] Start Date: 04/11/23 Status: Ordered ondansetron 8 mg oral tablet Start: 10/04/23 11:26:00 AM EDT, 8 mg =, PO, q8h, Disp# 50 tab, Refills: 3, PRN: nausea and vomiting, Pharmacy: [facility] Start Date: 10/04/23 Status: Ordered Tylenol Start: [...] Not identified. Prognostic markers: ER:Positive, strong staining(91-100%). NM: Positive, strong staining ((21-30%) 5xr lumbar spine [...] right breast. 3. Small hital hernia. Results Radiology Reports * Exam Date Time Procedure Performing Provider Status 10/04/23 8:[address] Abdomen and Pelvis w/ Contrast Erin Samaniego; Final Notes: (CT Abdomen and Pelvis w/ Contrast) Reason For Exam: malignant neoplasm left breast-mildly increasein size of enlarged subcarinal lymph node, possibly inflammatory reassess on routine surveillance. CT Abdomen and Pelvis w/ Contrast EXAMINATION: CT Abdomen and Pelvis w/ Contrast, CT Thorax w/ Contrast CLINICAL HISTORY: malignant neoplasm left breast-mildly increase in size of enlarged subcarinal lymph node, possibly inflammatory reassess on routine surveillance. COMPARISON: 07/05/2023 TECHNIQUE: CT Abdomen and Pelvis w/ Contrast, CT Thorax w/ Contrast CONTRAST: Contrast Type (IV): Omnipaque 350 Contrast Volume (IV) in ml: 100.00 Contrast Type (Oral): Contrast Volume (Oral) in ml: DOSE: Total Reported Dose Length Product (DLP) = 664.95 mGy.cm FINDINGS: CHEST Pleura and Lungs: New groundglass nodule in the right lower lobe. Scattered punctate nodules. No pleural effusion or pneumothorax. Central airways: Trace secretion within this trachea. Lymph nodes: Unchanged right paratracheal node measuring 0.9 cm. Thyroid and Mediastinum: Normal Heart and Great vessels: Normal ABDOMEN Liver, Gallbladder \T\ bile ducts: Unchanged caudate lobe hypodensity measuring 1 cm, previously characterized hemangioma. No new focal liver lesion. No biliary ductal dilation. Normal gallbladder. Pancreas: Normal Spleen: Normal Adrenals: Normal Kidneys, collecting system and ureters: Normal Retroperitoneum, lymph nodes, and vessels: There are atherosclerotic calcifications of the aorta. Bowel \T\ Mesentery: No bowel obstruction. No free air or free fluid. PELVIS Bladder: Normal Reproductive organs: Normal Extraperitoneal, lymph nodes, vessels: Normal Osseous and body wall: No acute osseous abnormality. Degenerative changes of the spine. IMPRESSION: 1. New groundglass nodule within the right lower lobe, indeterminant, attention in follow-up. 2. Stable right paratracheal lymph node. 3. No metastatic disease within the abdomen or pelvis. [place] Act 112: This study does not meet the requirements of [place] Act 112. NON-EMERGENT ACTIONABLE FINDINGS Recommendation: None. [REC0] Workstation ID: [id number] Final Dictated by:Edwin Velzo MD, Hussain Dictated DT/TM:10/05/2023 9:58 Signed by:Edwin Veloz MD, Hussain Signed (Electronic Signature):10/05/2023 9:57 a * Exam Date Time Procedure Performing Provider Status 10/04/23 8:[address] Thorax w/ Contrast Erin Mccarthy; Final Notes: (CT Thorax w/ Contrast) Reason For Exam: malignant neoplasm left breast-mildly increase in size of enlarged subcarinal lymph node, possibly inflammatory reassess on routine surveillance. CT Thorax w/ Contrast EXAMINATION: CT Abdomen and Pelvis w/ Contrast, CT Thorax w/ Contrast CLINICAL HISTORY: malignant neoplasm left breast-mildly increase in size of enlarged subcarinal lymph node, possibly inflammatory reassess on routine surveillance. COMPARISON: 07/05/2023 TECHNIQUE: CT Abdomen and Pelvis w/ Contrast, CT Thorax w/ Contrast CONTRAST: Contrast Type (IV): Omnipaque 350 Contrast Volume (IV) in ml: 100.00 Contrast Type (Oral): Contrast Volume (Oral) in ml: DOSE: Total Reported Dose Length Product (DLP) = 664.95 mGy.cm FINDINGS: CHEST Pleura and Lungs: New groundglass nodule in the right lower lobe. Scattered punctate nodules. No pleural effusion or pneumothorax. Central airways: Trace secretion within this trachea. Lymph nodes: Unchanged right paratracheal node measuring 0.9 cm. Thyroid and Mediastinum: Normal Heart and Great vessels: Normal ABDOMEN Liver, Gallbladder \T\ bile ducts: Unchanged caudate lobe hypodensity measuring 1 cm, previously characterized hemangioma. No new focal liver lesion. No biliary ductal dilation. Normal gallbladder. Pancreas: Normal Spleen: Normal Adrenals: Normal Kidneys, collecting system and ureters: Normal Retroperitoneum, lymph nodes, and vessels: There are atherosclerotic calcifications of the aorta. Bowel \T\ Mesentery: No bowel obstruction. No free air or free fluid. PELVIS Bladder: Normal Reproductive organs: Normal Extraperitoneal, lymph nodes, vessels: Normal Osseous and body wall: No acute osseous abnormality. Degenerative changes of the spine. IMPRESSION: 1. New groundglass nodule within the right lower lobe, indeterminant, attention in follow-up. 2. Stable right paratracheal lymph node. 3. No metastatic disease within the abdomen or pelvis. [place] Act 112: This study does not meet the requirements of [place] Act 112. NON-EMERGENT ACTIONABLE FINDINGS Recommendation: None. [REC0] Workstation ID: [id number] Final Dictated by:Edwin Veloz MD, Hussain Dictated DT/TM:10/05/2023 9:58 Signed by:Edwin Veloz MD, Hussain Signed (Electronic Signature):10/05/2023 9:57 a Social History Social History Type Response Smoking Status Never smoked cigaret joon Sex Female Patient Care team information Care Team Personnel Name: Blayne Gerardo Amy E Position: Pharmacist Member Role: Pharmacy - Lifetime Address: Address: [address] Name: Blayne Solares Christine A Position: Pharmacist Schedule II Member Role: Pharmacy - Lifetime Name: Blayne Cox Kimberly Position: Pharmacist BCMA Member Role: Pharmacy - Lifetime Address: Address: [address] Name: Yamileth Morales Position: MOA Schedule II Member Role: HIS Lifetime Name: WASHINGTON Covington Shari A Position: Nurse Pract - Family Med Member Role: Primary Care Provider Address: Address: [address] [place] [address] Care Team Related Persons Name: SANDRINE ANSARI Address: [place] Address: home [address] [place], [place] [id number]
--- OUTSIDE RECORDS SUMMARY | 2023-11-07 02:27 | External Medical Summary | Continuity of Care Document ---
Author Name Unknown Organization [facility] Address [address] [place] [id number] Care Team Providers Care Auto Body Customizer Name Role Phone Magaly Covington Primary Care Physician [phone] Encounter [facility] [id number] Date(s): 10/17/23 - 10/17/[address] [phone] Encounter Diagnosis Encounter for adjustment and management of vascular access device(Final) - Depression, unspecified(Final) - Anxiety disorder, unspecified(Final) - Essential (primary) hypertension(Final) - Personal history of malignant neoplasm of breast(Final) - Personal history of irradiation(Final) - Personal history of antineoplastic chemotherapy(Final) - 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) - Other mcc (current) drug therapy(Final) - Discharge Disposition: Home or Self Care Attending Physician: MD Rosalee, Peter Landis Referring Physician: MD Paddy, Maggy Ferris Allergies, Adverse Reactions, Alerts No Known Allergies Functional Status 10/17/23 History of Fall in Last 3 Months Dodson N o Presence of Secondary Diagnosis Dodson Ye s Use of Ambulatory Aid Dodson None/bedrest /nurse assist IV/Heparin Lock Fall Risk Dodson Yes Gait/Transferring Fall Risk Dodson Normal /bedrest/immobile Mental Status Fall Risk Dodson Oriented t o own ability Dodson Fall Risk Score 35 Dodson Fall Risk Low Risk Immunizations Given and Recorded Vaccine Date Status [...] ONE TABLET BY MOUTH EVERY DAY, Pharmacy: [facility] Start Date: 04/11/23 Status: Ordered lisinopril 20 mg oral tablet Start: 04/11/23 3:01:00 PM EST, 1 tab, PO, Daily, Disp# 30 tab, Refills: 11, Pharmacy: [facility] Start Date: 04/11/23 Status: Ordered ondansetron 8 mg oral tablet Start: 10/04/23 11:26:00 AM EDT, 8 mg =, PO, q8h, Disp# 50 tab, Refills: 3, PRN: nausea and vomiting, Pharmacy: [facility] Start Date: 10/04/23 Status: Ordered Tylenol Start: [...] Not identified. Prognostic markers: ER:Positive, strong staining(91-100%). CO: Positive, strong staining ((21-30%) 5xr lumbar spine [...] hital hernia. Results Laboratory List Name Date Prothrombin Time w/ INR (PT/INR) 10/17/23 Most recent to oldest [Reference Range]: 1 INR [0.9-1.1] 0.9 1 (10/17/23 8:00 AM) PT [12.0-14.2 seconds] 12.6 seconds (10/17/23 8:00 AM) 1Result Comment: Suggested therapeutic range for low-intensity Coumadin therapy for venous thromboembolism is INR 2.0-3.0 (ex: atrial fibrillation, history of TIA/stroke). For high risk patients, the suggested therapeutic range is INR 2.5-3.5 (ex: mechanical prosthetic valves). Radiology Reports * Exam Date Time Procedure Performing Provider Status 10/17/23 10:51 AM IR Venous Port Removal Tonia Durant; Final Notes: (IR Venous Port Removal) Reason For Exam: 63 yf with breast cancer, completed treatment fro port removal IR Venous Port Removal EXAMINATION: IR Venous Port Removal CLINICAL HISTORY: C50.919: Malignant neoplasm of unspecified site of unspecif; 63 yf with breast cancer, completed treatment fro port removal PROCEDURES: Moderate Sedation, Physician Supervised Port Removal HISTORY: 63-year-old female with a history of Malignant neoplasm of unspecified site of unspecified female breast INDICATIONS: Catheter No Longer Needed PHYSICIANS: MD Quintin Bustamante DO SUPERVISION: The Attending was physically present in the room and supervised the performance of the procedure. SEDATION: The risks and benefits of moderate sedation were discussed with the patient as part of the procedural informed consent process. Provider supervised intra- procedure moderate sedation was performed using a trained independent observer who monitored the patient's level of sedation and physiologic status throughout the procedure. Pre-procedure and post-procedure sedation assessments were performed inaccordance with institutional sedation policy and are documented separately in the medical record. Total Provider Sedation Supervision Time: 30 minutes. MEDICATIONS: Fentanyl 100 mcg Midazolam 2 mg CONTRAST: None. DOSIMETRY: Fluoroscopy Time: 0.10 min Cumulative Dose: 1 mGy MEASUREMENTS: None. SPECIMENS: None. EST. BLOOD LOSS: < 50 ml COMPLICATIONS: None. SUPPORTING DOCUMENTATION: Pre-Procedure Verification (Physician/Provider) [X]: Patient Name and Verified Against Patient ID Band [X]: Written Consent Verified (Patient, Procedure, Site/Side) [ ]: Site Marking Verified (keep unchecked if not applicable) [X]: H \T\ P Completed (if required) Documented 10/17/2023 at 10:00:43 By Peter Turk MD Pre-Procedure Verification (Nurse/Technologist) [X]: Patient Name and Verified Against Patient ID Band [X]: Written Consent Verified (Patient, Procedure, Site/Side) [ ]: Site Marking Verified (keep unchecked if not applicable) [X]: H \T\ P Verified (if required) Documented 10/17/2023 at 10:00:43 By RAMESH Orourke Time Out [X]: Patient Identified by Name and [X]: Written Consent Verified (Patient,Procedure, Site/Side) [X]: Patient Positioned Correctly [X]: Patient Records Available (Order, Images) [X]: Anticipated Procedure Equipment / Devices Available [ ]: Site / Side Marking Completed (keep unchecked if not applicable) [X]: Preprocedure Medications Administered (Antibiotics,Premedications, or n/a) [X]: All team members are present and are in agreement with Time Out (not documented prior to 09/02/2017). Documented 10/17/2023 at 10:20:49 By Stephen Atkins RN Physician Post Procedure Sign Out [X]: Diagnosis Confirmed [X]: Performed Procedure Confirmed [ ]: Specimen Identification Confirmed [X]: Patient Recovery / Post Procedure Care Concerns Discussed Documented 10/17/2023 at 10:50:20 By Peter Turk MD TECHNIQUE: Following informed consent, verification of the correct patient identity and planned procedure, andreview of any available port insertion procedure report, the right chest was prepped and draped using sterile technique. Local anesthesia was administered around the port using 2% Lidocaine. The portpocket was then opened using a combination of blunt and sharp dissection. The port reservoir, catheter, and catheter attachment hub were removed intact. Direct pressure was applied to the venipuncture site and along the pocket until hemostasis was achieved. Inspection of the pocket showed no evidence of infection. Palpation and fluoroscopic examination over the site revealed no palpable or radiogr aphically apparent retained port components. Therefore, the pocket was closed primarily in two layers using 2-0 and 4-0 Vicryl. Dermabond was applied to the incision. A dry dressing was placed at thesite. INTERPRETATION / IMPRESSION: Uneventful removal of right chest port as described above. ATTENDING PHYSICIAN ATTESTATION: I was physically present in the room and supervised the performance of the procedure. Workstation ID: [id number] Final Dictated by:MD Turk Frank C Dictated DT/TM:10/17/2023 11:05 Signed by:MD Turk Frank C Signed (Electronic Signature):10/17/2023 11:04 Vital Signs Most recent to oldest [Reference Range]: 1 2 3 Temperature [36.5-37.9 DegC] 36.5 DegC (10/17/23 11:01 AM) 36 DegC *LOW* (10/17/23 8:02 AM) Heart Rate 68 bpm (10/17/23 12:15 PM) 66 bpm (10/17/23 12:00 PM) 65 bpm (10/17/23 11:45 AM) Respiratory Rate 18 br/min (10/17/23 12:15 PM) 18 br/min (10/17/23 12:00 PM) 18 br/min (10/17/23 11:45 AM) Blood Pressure 95/40mmHg (10/17/23 12:15 PM) 104/50mmHg (10/17/23 12:00 PM) 100/48mmHg (10/17/23 11:45 AM) Mean Blood Pressure 57 mmHg (10/17/23 12:15 PM) 66 mmHg (10/17/23 12:00 PM) 65 mmHg (10/17/23 11:45 AM) Cuff Pulse Pressure 55 mmHg (10/17/23 12:15 PM) 54 mmHg (10/17/23 12:00 PM) 52 mmHg (10/17/23 11:45 AM) Social History Social History Type Response Smoking Status Never smoked cigaret joon Sex Female Pre-OP H & P * MD Rosalee, Peter C: PERFORM Event Display: Pre-OP H & P Authored Date: [id number] PRE-OPERATIVE HISTORY AND PHYSICAL Name: GERTRUDE ANSARI Patient Number: [id number] : 1960 Date of Service: 10/17/2023 Interventional Radiology Pre-procedure History and Physical Patient Name: GERTRUDE ANSARI Date Of : 1960 Medical Record: [id number] Date of Service: 2023-10-17 Planned Procedure: IR Venous Port Removal Reason For Consult: IV Access: Port Removal History of Present Illness: 63F with R breast ca s/p mastectomy (R and L), radiation, chemotherapy. Patient had port placed 07/12/22. Now in remission and presents for removal. Past Medical and Surgical History: Anxiety, Depression, Ductal carcinoma in situ (DCIS) of right breast, Heartburn, Hiatal hernia, Hypertension, Hypovitaminosis D, TMJ (dislocation of temporomandibular joint), Procedure/Surgical History, Partial mastectomy of left breast (06/10/2022), Biopsy of breast (03/28/2022), Right breast (06/19/2020), Biopsy of breast (05/26/2020), X-ray (11/02/2018), MRI of breast, oral surgery, sinus surgery, tubal ligation Allergies: NKDA Medications: acetaminophen, 1000 mg= 2 tab, PO, ONCE, acetaminophen(Tylenol), 500 mg, PO, escitalopram(escitalopram 20 mg oral tablet), See Instructions, 11 refills, lisinopril(lisinopril 20 mg oral tablet), 20 mg= 1 tab, PO, Daily, 11 refills, loratadine(Claritin), See Instructions, PRN, ondansetron(ondansetron 8 mg oral tablet), 8 mg, PO, q8h, PRN, 3 refills, prochlorperazine(prochlorperazine 10 mg oral tablet), 10 mg, PO, q6h, PRN, 5 refills Labs: Date: 10/04/2023 Time: 09:10 Hgb 11.2 Plats 251 WBC 5.2 Other Studies: CT Chest 10/04/23 Physical Exam: LOC / Mental Status: Awake, Alert, Oriented Airway: Mallampati Score: Class 2: Complete visualization of the uvula Lungs: Clear Cardiac: Normal Sinus Rhythm ASA Classification: Class I: Normal healthy patient Assessment: 63F with R breast ca s/p mastectomy (R and L), radiation, chemotherapy. Patient had port placed 07/12/22. Now in remission and presents for removal. Plan: Single lumen port removal Sedation for placement: Sedation / Anesthesia Plan: Moderate Sedation Consent by Patient Electronic Signature on File Electronically Reviewed/Signed by: Peter Turk MD, FSIR Author Signature Dt/Tm:10/17/2023 10:02AM research nutritionist [employer] Member, Interventional Radiology [address] [place], [place] [address] [id number] [facility] Anesthesia records * Services, CPDI: PERFORM Event Display: Sedation & Analgesia Record Authored Date: [id number] Patient Care team information Care Team Personnel Name: Blayne Gerardo Amy E Position: Pharmacist Member Role: Pharmacy - Lifetime Address: Address: [facility] [address] [place] [address] Name: Blayne Solares Christine A Position: Pharmacist Schedule II Member Role: Pharmacy - Lifetime Name: Blayne Cox Kimberly Position: Pharmacist BCMA Member Role: Pharmacy - Lifetime Address: Address: [address] [address] Name: Yamilteh Morales Position: MOA Schedule II Member Role: HIS Lifetime Name: WASHINGTON Covington Shari A Position: Nurse Pract - Family Med Member Role: Primary Care Provider Address: Address: [address] [place] [address], [place] [address] Care Team Related Persons Name: SANDRINE ANSARI Address: [place] Address: home [address] [facility] [place] [phone]
--- OUTSIDE RECORDS SUMMARY | 2023-11-07 02:27 | External Medical Summary | Continuity of Care Document ---
Author Name Unknown Organization [facility] Address [address] [place] [id number] Care Team Providers Care Large Sheetfed Press Operator Name Role Phone TamaraMagaly thompson [facility] Primary Care Physician [phone] Encounter [facility] [id number] Date(s): 07/12/23 - 07/12/23 [facility] [address] [facility] [address] [place] [address]- [phone] Encounter Diagnosis Breast cancer in female(Discharge Diagnosis) - 07/12/23 Discharge Disposition: Home or Self Care Attending Physician: MD Thomason Monali K Referring Physician: MD Thomason Monali K Allergies, Adverse Reactions, Alerts No Known Allergies Functional Status 07/12/23 Gait Steady Immunizations Given and Recorded Vaccine Date Status [...] TAKE ONE TABLET BY MOUTHEVERY DAY, Pharmacy: [facility] Start Date: 04/11/23 Status: Ordered lisinopril 20 mg oral tablet Start: 04/11/23 15:01:00 EST, 1 tab, PO, Daily, Disp# 30 tab, Refills: 11, Pharmacy: [id number] Start Date: 04/11/23 Status: Ordered ondansetron 8 mg oral tablet Start: 04/05/23 13:22:00 EST, 8 mg =, PO, q8h, Disp# 30 tab, Refills: 3, PRN: nausea and vomiting, Pharmacy: [facility] Start Date: 04/05/23 Status: Ordered prochlorperazine 10 mg oral tablet Start: 07/07/22 7:00:00 EDT, 10 mg =, PO, q6h, Disp# 40 tab, Refills: 5, PRN: nausea and vomiting, Pharmacy: [facility] Start Date: 07/07/22 Status: Ordered Tylenol Start: 05/04/17 8:30:00 EST, 500 mg =, PO, as needed Start Date: 05/04/17 Status: Ordered Mental Status 07/12/23 Barriers to Learning one year Vision imp airment, Other: glasses Problem List Condition Confirmation Course Effective Dates [...] Dates Health Status Cl inical Service Informant Breast cancer in female Discharge Diagnosis 07/12/23 Non-Specified Procedures Procedure Date Related Diagnosis Body [...] Not identified. Prognostic markers: ER:Positive, strong staining(91-100%). [place]: Positive, strong staining ((21-30%) 5xr lumbar spine [...] Complete Blood Count w Differential (CBC ,DIFFH) 07/12/23 Comprehensive Metabolic Panel (COMP META B PANEL) 07/12/23 Most recent to oldest [Reference Range]: 1 eGFR CKD-EPI [>60 mL/min/1.73 m2] 47 mL/ min/1.73 m2 *LOW* (07/12/23 9:00 AM) Estimated CrCl 41.80 mL/min (07/12/23 9:52 AM) MPV [9.0-12.2 fL] 8.0 fL *LOW* (07/12/23 9:00 AM) Immature Gran% 0.2 % (07/12/23 9:00 AM) Neut% 67.4 % (07/12/23 9:00 AM) Lymph% 20.9 % (07/12/23 9:00 AM) [place]% 8.9 % (07/12/23 9:00 AM) Baso% 0.9 % (07/12/23 9:00 AM) Eos% 1.7 % (07/12/23 9:00 AM) Immat Gran, Abs [0-0.4 K/uL] 0.01 K/uL (07/12/23 9:00 AM) Neut, Abs [2.0-7.7 K/uL] 3.64 K/uL (07/12/23 9:00 AM) Lymph, Abs [1.0-3.4 K/uL] 1.13 K/uL (07/12/23 9:00 AM) Livingston, Abs [0-1.0 K/uL] 0.48 K/uL (07/12/23 9:00 AM) Baso, Abs [0-0.1 K/uL] 0.05 K/uL (07/12/23 9:00 AM) Eos, Abs [0-0.5 K/uL] 0.09 K/uL (07/12/23 9:00 AM) Type of Diff: AUTO *Unknown* (07/12/23:00 AM) RDW [11.5-14.2 %] 14.0 % (07/12/23 9:00 AM) Anion Gap [5-14 mmol/L] 14 mmol/L (07/12/23 9:00 AM) Alb [3.5-5.2 g/dL] 4.2 g/dL (07/12/23 9:00 AM) Alk Phos [35-115 unit/L] 83 unit/L 1 (07/12/23 9:00 AM) ALT [0-33 unit/L] 27 unit/L (07/12/23 9:00 AM) AST [0-32 unit/L] 22 unit/L (07/12/23 9:00 AM) BUN [6-23 mg/dL] 31 mg/dL *HI* (07/12/23 9:00 AM) Ca [8.4-10.2 mg/dL] 9.0 mg/dL (07/12/23 9:00 AM) Cl- [98-107 mmol/L] 103 mmol/L (07/12/23 9:00 AM) HCO3 [22-29 mmol/L] 21 mmol/L *LOW* (07/12/23 9:00 AM) Cret [0.60-1.00 mg/dL] 1.30 mg/dL *HI* (07/12/23 9:00 AM) Glu [74-109 mg/dL] 89 mg/dL 2 (07/12/23 9:00 AM) Hct [35-44 %] 30.2 % *LOW* (07/12/23 9:00 AM) Hgb [11.7-15.0 g/dL] 9.7 g/dL *LOW* (07/12/23 9:00 AM) K [3.5-5.1 mmol/L] 4.6 mmol/L (07/12/23 9:00 AM) MCH [28-33 pg] 31.0 pg (07/12/23 9:00 AM) MCHC [32-36 g/dL] 32.1 g/dL (07/12/23 9:00 AM) MCV [81-96 fL] 96.5 fL *HI* (07/12/23 9:00 AM) Na [136-145 mmol/L] 138 mmol/L (07/12/23 9:00 AM) Plts [150-350 K/uL] 279 K/uL (07/12/23 9:00 AM) RBC [3.90-5.00 M/uL] 3.13 M/uL *LOW* (07/12/23 9:00 AM) T Bili [0.0-1.2 mg/dL] 0.1 mg/dL (07/12/23 9:00 AM) Prot [6.4-8.3 g/dL] 7.2 g/dL (07/12/23 9:00 AM) WBC [4.0-10.4 K/uL] 5.40 K/uL (07/12/23 9:00 AM) 1Result Comment: Low levels of ALKP may indicate a deficiency in zinc, magnesium, or malnutritionbutcan also be an indicator of a rare genetic disease hypophosphatasia (HPP). 2Result Comment: ADA recommendation for FASTING Serum/Plasma Glucose: Normal: 70-100 mg/dL Prediabetes: 100-125 mg/dL Diabetes: 126 mg/dL or higher Vital Signs Most recent to oldest [Reference Range]: 1 Patient Weight 70.9 kg (07/12/23 8:50 AM) Temperature [36.5-37.9 DegC] 36.8 DegC (07/12/23 8:50 AM) Heart Rate 76 bpm (07/12/23 8:50 AM) Respiratory Rate 18 br/min (07/12/23 8:50 AM) Blood Pressure 126/68mmHg (07/12/23 8:50 AM) Cuff Pulse Pressure 58 mmHg (07/12/23 8:50 AM) BP Location # 1 Left Arm (07/12/23 8:50 AM) Social History Social History Type Response Smoking Status Never smoked cigaret joon Sex Female Patient Care team information Care Team Personnel Name: Blayne Gerardo Amy E Position: Pharmacist Member Role: Pharmacy - Lifetime Address: Address: [place] [address] [place] Name: Blayne Solares Christine A Position: Pharmacist Schedule II Member Role: Pharmacy - Lifetime Name: Blayne Cox Kimberly Position: Pharmacist BCMA Member Role: Pharmacy - Lifetime Address: Address: [place] [address] [place] Name: JASPER Brambila Jordan Z Position: Provider - Terminated Member Role: Lifetime Relationship Address: Address: [address] [place] [address] [place] Name: Yamileth Morales Position: MOA Schedule II Member Role: HIS Lifetime Name: WASHINGTON Coving[place] Shari A Position: Nurse Pract - Family Med Member Role: Primary Care Provider Address: Address: [address] [place] [id number] Care Team Related Persons Name: SANDRINE ANSARI Address: [place] Address: home [address] [phone]
--- OUTSIDE RECORDS SUMMARY | 2023-11-07 02:27 | External Medical Summary | Continuity of Care Document ---
Author Name Unknown Organization [facility] Address [address] [place] [id number] Care Team Providers Care Space Physicist Name Role Phone TamaraMagaly thompson [facility] Primary Care Physician [phone] Encounter [facility] [id number] Date(s): 06/21/23 - 06/21/23 [facility] [place] [facility] [address] [facility] [address] [place] [address]- [phone] Encounter Diagnosis Breast cancer in female(Discharge Diagnosis) - 06/21/23 Discharge Disposition: Home or Self Care Attending Physician: MD Thomason Monali K Referring Physician: MD Thomason Monali K Allergies, Adverse Reactions, Alerts No Known Allergies Functional Status 06/21/23 Gait Steady Immunizations Given and Recorded Vaccine [...] TAKE ONE TABLET BY MOUTHEVERY DAY, Pharmacy: [facility] Start Date: 04/11/23 Status: Ordered lisinopril 20 mg oral tablet Start: 04/11/23 15:01:00 EST, 1 tab, PO, Daily, Disp# 30 tab, Refills: 11, Pharmacy: [id number] Start Date: 04/11/23 Status: Ordered ondansetron 8 mg oral tablet Start: 04/05/23 13:22:00 EST, 8 mg =, PO, q8h, Disp# 30 tab, Refills: 3, PRN: nausea and vomiting, Pharmacy: [facility] Start Date: 04/05/23 Status: Ordered prochlorperazine 10 mg oral tablet Start: 07/07/22 7:00:00 EDT, 10 mg =, PO, q6h, Disp# 40 tab, Refills: 5, PRN: nausea and vomiting, Pharmacy: [facility] Start Date: 07/07/22 Status: Ordered Tylenol [...] Informant Breast cancer in female Discharge Diagnosis 06/21/23 Non-Specified Procedures Procedure Date Related Diagnosis Body Site Status Bilateral mastectomy 12/23/22 Comp leted Partial mastectomy of left breast 06/10/22 Completed Biopsy of breast 1 03/28/22 Comple lev Right breast 2 06/19/20 Completed Biopsy of breast 3, 4 05/26/20 Com pleted X-ray 5 7/12/19 Completed MRI of breast 6 Completed oral surgery Completed sinus surgery Completed tubal ligation Completed 1Left DCIS 2partial mastectomy 3Right breat 4Pathology: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 Nuclear grade: 3 Greatest linear extent: 2mm. Necrosis: none. Microcalcifications: Not identified. Prognostic markers: ER:Positive, strong staining(91-100%). [place]: Positive, strong staining ((21-30%) 5xr lumbar spine [...] the right breast. 3. Small hital hernia. Vital Signs Most recent to oldest [Reference Range]: 1 Patient Weight 69.7 kg (06/21/23 9:03 AM) Temperature [36.5-37.9 DegC] 36.4 DegC *LOW* (06/21/23 9:03 AM) Heart Rate 83 bpm (06/21/23 9:03 AM) Respiratory Rate 20 br/min (06/21/23 9:03 AM) Blood Pressure 110/60mmHg (06/21/23 9:03 AM) Cuff Pulse Pressure 50 mmHg (06/21/23 9:03 AM) BP Location # 1 Right Arm (06/21/23 9:03 AM) Social History Social History Type Response Smoking Status Never smoked cigaret joon Sex Female Patient Care team information Care Team Personnel Name: Blayne Gerardo Amy E Position: Pharmacist Member Role: Pharmacy - Lifetime Address: Address: [address] Name: Blayne Solares Christine A Position: Pharmacist Schedule II Member Role: Pharmacy - Lifetime Name: Blayne Cox Kimberly Position: Pharmacist BCMA Member Role: Pharmacy - Lifetime Address: Address: [address] [address] [place] Name: JASPER Brambila Jordan Z Position: Physician [employer] - Hem/Onc Member Role: Lifetime Relationship Address: Address: [address] [place] [address] [place] Name: Yamileth Morales Position: MOA Schedule II Member Role: HIS Lifetime Name: WASHINGTON C[place] Shari A Position: Nurse Pract - Family Med Member Role: Primary Care Provider Address: Address: [address] [place] [address], [place] [address] Care Team Related Persons Name: SANDRINE ANSARI Address: [place] Address: home [address] [facility] [place] [phone]
--- OUTSIDE RECORDS SUMMARY | 2023-11-07 02:27 | External Medical Summary | Continuity of Care Document ---
Author Name Unknown Organization [facility] Address [address] [place] [address] JORGE DIAZ [id number] Care Team Providers Care Waste Removalist Name Role Phone Magaly C[place] [facility] Physician [phone] Encounter [facility] [id number] Date(s): 07/05/23 - 07/05/23 [facility] [id number], [place] [id number]- [phone] Encounter Diagnosis Malignant neoplasm of left breast(Discharge Diagnosis) - 07/05/23 Discharge Disposition: Home or Self Care Attending Physician: MD Thomason Monali K Referring Physician: MD Thomason Monali K Allergies, Adverse Reactions, Alerts No Known Allergies Assessment and Plan Extracted from: Title:Office Visit Note Author:[place] Velazquez Kath y N Date:07/05/23 Gertrude is a 63-year-old postm enopausal lady withscreening detected RIGHT BREAST DCIS, which is ER 91-100% positive, NC 21-30% positive in June 2020- Status post right partial mastectomy for which she completed adjuvant radiation and on Anastrozole for chemo prevention. Dueto dense breast tissue, she also gets supplemental MRI along with annual Mammogram. MRI breast Nov 2021 noted jne-yocz-nbgv segmental enhancement in the 12:00 radian of the LEFT breast from anterior to middle depth. 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 Dr Montemayor, performed Lumpectomy 06/10/2022 (Nipple areolar complex was excised, no Bates Lymph node biopsy was performed) and now Pathology showed Invasive Ductal Carcinoma, Grade 3 whichis ER/NC- HER2+. pT1CNX At this point, due to upgrade to IDC, after discussion at tumor board, plan for proceeding with adjuvant chemotherapy (after d/w pt, TCHP was decided), followed by LEFT mastectomy (+/- Rt mastectomy), and atleast a Left SNL (vs left ax dissection) . left Ax US on 07/04/22 did not show any abnormal LN merced. Staging scans showed indeterminate liver lesion 1.7 cm- MRI confired no mets. She presented to the [facility] for another cycle of chemotherapy on 07/28/22 when routine labs demonstrated an elevated Cr at 7.36, increased from a baseline of 0.8, and anion gap metabolic acidosis with a bicarb of 13 and AG 18 likely pre- renal acute renal injury secondary to dehydration from nausea/vomiting.Hospitalized 08/17-08/20 for ARF and also found to haveCdiff infection which improved with aggressive fluid hydration, and PO vancomycin . Subsequently Carbplatin was held. PO van,c Px was continued. She completed TCHP x6 and had BL mastectomy on 12/23/22- for ypT0Nx. Recent admission for Diarrhea/Vx/ARF- which resolved with IVF resuscitation. After discussion, decision was made to pursue adjuvant Trastuzumab only - as no indication for change to Ado Trastuzumab and due to recurrent ARF from diarrhea sec to pertuzumab. She is now on single agent every 3 weeks Trastuzumab. She is also now off endocrine therapy as she has had BL mastectomy, and no role for chemoprevention for her original DCIS diagnosis. Aso her Invasive cancer was HR Negative. PLAN: Breast, Invasive ductal carcinoma, grade 3 pT1cNx ER/NC- HER2+ s/p central Lumpectomy and no SNL- then with TCHP followed by BL mastectomy -Dr Donovanateral mastectomy 12/23/2022, with attempted LN biopsy- none removed. [id number]/2022 -continue Trastuzumab, next scheduled 07/12/2023-due tograde 4diarrhea- pertuzumab was discontinued 12/29/2022 -ECHO 04/05/2023 -CT CAP 07/05/2023 showedmildly increase in size of enlarged subcarinal lymph node, possibly inflammatory reassess on routine surveillance- CT CAP ordered with follow up DCIS, which is ER 91-100% positive, NC 21-30% positive, sp right partial mastectomy in past and now S/P BL mastectomy - Ct Anastrozole x5 years- hold during chemotherapy- now that she is s.p BL mastectomy- and invasive cancer was ER/NC- stopped Anastrozole. -saw genetics 05/18/2022 Diarrhea - improved Hospitalization 08/17-08/20/2022 ARF/ Cdiff infection, continue to monitor with follow up Vancomycin 125mg PO BID prophylactic given severe C diff infection and need for ongoing chemotherapy- now completed. Another hospitalization with diarrhea, ARF, hypovolemic shock- 01/18/23, this time was not CDIFF. -stopped Pertuzumab last dose 12/29/2022 Mild leukocytosis and thrombocytosis -Likely sec to pre med steroids Bone Health -Alendronate -Osteopenia on scan from 10/19/2020 Follow up in 3 months with labs and follow up scan Immunizations Given and Recorded Vaccine Date Status [...] TAKE ONE TABLET BY MOUTHEVERY DAY, Pharmacy: [id number] Start Date: 04/11/23 Status: Ordered lisinopril 20 mg oral tablet Start: 04/11/23 15:01:00 EST, 1 tab, PO, Daily, Disp# 30 tab, Refills: 11, Pharmacy: [id number] Start Date: 04/11/23 Status: Ordered ondansetron 8 mg oral tablet Start: 04/05/23 13:22:00 EST, 8 mg =, PO, q8h, Disp# 30 tab, Refills: 3, PRN: nausea and vomiting, Pharmacy: [facility] Start Date: 04/05/23 Status: Ordered prochlorperazine 10 mg oral tablet Start: 07/07/22 7:00:00 EDT, 10 mg =, PO, q6h, Disp# 40 tab, Refills: 5, PRN: nausea and vomiting, Pharmacy: [id number] Start Date: 07/07/22 Status: Ordered Tylenol Start: 05/04/17 8:30:00 EST, 500 mg =, PO, as needed Start Date: 05/04/17 Status: Ordered Mental Status 07/05/23 Barriers to Learning one year Vision imp airment, Other: glasses Mandatory Health Literacy Documentation Yes Health Literacy Communication Barriers N ever Primary Language Indian Problem List Condition Confirmation Course Effective Dates [...] Dates Health Status Cl inical Service Informant Malignant neoplasm of left breast Discharge Diagnosis 07/05/23 Non-Specified Procedures Procedure Date Related Diagnosis Body [...] Not identified. Prognostic markers: ER:Positive, strong staining(91-100%). NC: Positive, strong staining ((21-30%) 5xr lumbar spine [...] recent to oldest [Reference Range]: 1 Height 157.2 cm (07/05/23 10:11 AM) Patient Weight 70.2 kg (07/05/23 10:11 AM) Body Mass Index 28.41 kg/m2 (07/05/23 10:11 AM) Temperature [36.5-37.9 DegC] 36.2 DegC *LOW* (07/05/23 10:11 AM) Heart Rate 74 bpm (07/05/23 10:11 AM) Respiratory Rate 16 br/min (07/05/23 10:11 AM) Blood Pressure 112/61mmHg (07/05/23 10:11 AM) Cuff Pulse Pressure 51 mmHg (07/05/23 10:11 AM) BP Location # 1 Right Arm (07/05/23 10:11 AM) Social History Social History Type Response Smoking Status Never smoked cigaret joon Sex Female Hematology/Oncology Outpt Note * Ryanr, [place], Hannah N: PERFORM, MODIFY, MODIFY Event Display: Hematology/Oncology Outpt Note Authored Date: [id number] Chief Complaint Diagnosis: DCIS of right breast - s/p partial mastectomy, radiationand on chemoprevention with Anastrozole diagnosed June 2020 NEW DIAGNOSIS of LEFT breast Cancer - Initially DCIS ER/NC- on biopsy in Mar 2022 (suspicion for microinvasive/invasive component but not definitive) and now upgraded to IDC- Gr3- 15mm, ER/NC- AND HER2 positive (IHC3+) on lumpectomy pT1cNx (with Pagets disease of nipple) in May 2022 Current Treatment: Pertuzumab/Trastuzumab - switch to Trastuzumab only starting 01/26/2023 Previous Treatment:Anastrozole started 07/2020- on hold during chemotherapy [facility] cycle 1 D107/07/2022, C2D1 07/27/2022, C3 D1 08/31/2022, C4D1 09/21/2022, C5D1 10/18/2022, C6D1 11/04/2022, History of Present Illness We had the pleasure of seeing Ms Galeano for medical oncology follow up today 07/05/2023. Oncologic History: Gertrude is a 63 -year-old postmenopausal lady who had undergone a screening mammography at an outside hospital with a subtle focal area of architectural distortion in the middle third of the right breast, for which she had undergone a biopsy at outside hospital on 05/26/2020 which was since reviewed here. This revealed a minute focus1.7 mm of intermediate grade DCIS. The ER was 90% positive, NC was 25% positive. This was a micropapillary type DCIS, rare microcalcifications were seen. Following this, she had met with Dr. Montemayor and underwent right partial mastectomyon 06/25/2020. Prior to that, she had an MRI of her breast on 06/05/2020 which showed a 2 cm hematoma at her right breast area. She then underwent right partial mastectomy, which showed a small focus of residual carcinoma in situ, measuring at least 1.5 mm with adjacent prior biopsy site negative margins. Background breast tissue with intraductal papilloma suggestive of radial scar cystic apocrine metaplasia, usual ductal hyperplasia, columnar change and fibromatoid change. Right breast posterior inferior margin excision was negative for any residual carcinoma. She then underwent surgery on 06/19/2020 as described above. Shortly after surgery, she had to undergo, in the OR, for evacuation of hematoma. There was a clot, which was evacuated. All the bleeders were cauterized. She was observed overnight. She was sent consideration of chemopreventative therapies. After discussions of risks and benefits, she started Anastrozole. She was was recommended to get Supplemental MRI due to dense breast tissue, which she was getting at [facility]. She also followed up with surgeon Dr Montemayor for routine clinical exams and Mammogram and was doing well until findings from MRI breast in Nov 2021 showed new NME (measuring 56 mm AP atleast) in LEFT breast (opposite side of original DCIS) and hence further work up/biopsy was requested. By the time she was able to get the biopsy here at [facility], in Mar 2022, she had noticed somenipple changes, butshe had thought this could have been due to her pet scratchingher- and she was going to see Dr Montemayor anyways.Her biopsy from NME of left breast showed atleast DCIS, high grade, ER/NC NEGwith concern for invasive/microinvasive component. After meeting with Dr Montemayor , she underwent Lumpectomy with removal of Nipple areolar complex on 06/10/2022 Dr Montemayor. For unclear reasons she unfortunately did not have a sentinel node biopsy at the time of herleft partial mastectomy. AT surgery, her she was upgraded to Invasive ductal carcinoma, grade 3, measuring at least 15 mm (gross measurement), with associated extensive ductal carcinoma in situ, with Lymp hovascular invasion. Her case was discussed at tumor board and adjuvant systemic therapy was recommended , followed by at leastleft mastectomywith possiblecontralateralmastectomy for symmetryandin futureat least left axillary lymph node sampling versus active axillarydissection. After detailed discussion of recommendations with Dariel at a follow up appt on 06/29/22, she was in favor of most aggressive approachand hence TCHP chemotherapywas recommended.. ECHO at baseline was normal.A targeted left axillary ultrasound showed no e/o suspicious LN [place]. CT CAP 07/27/2022 showed Indeterminate 1.7 cm lesion within the caudate lobe of the liver. MRI abdomenscheduled 3did not show any mets. She met with Dr Hanson- hardik surgeon who will assume her care and plan is for BL mastectomy and left SNL. She started TCHP cycle 1 D107/07/2022. C2D1 07/27/2022. She presented to the infusion center for another cycle of chemotherapy on 07/28/22 when routine labs demonstrated an elevated Cr at 7.36,increased from a baseline of 0.8, and anion gap metabolic acidosis with a bicarb of 13 and AG 18 likely pre-renal acute renal injury secondary to dehydration from nausea/vomiting.Hospitalized 08/17-08/20 for ARF and also found to haveCdiff infection which improved with aggressive fluid hydration, and PO vancomycin. She resumed cycle 3 TCH on 08/31/22, however Carboplatin was omitted and she was continued on low dose Px of po vanc. Also set up for hydration in between. She completed TCHP x6 and had BL mastectomy on 12/23/22- for ypT0Nx. Had another admission for Diarrhea/Vx/ARF- which resolved with IVF resuscitation. After discussion, decision was made to pursue adjuvant Trastuzumab only - as no indication for change to Ado Trastuzumab and due to recurrent ARF from diarrhea sec to pertuzumab. She is now on singleagent every 3 weeks Trastuzumab. She is also now off endocrine therapy as she has had BL mastetcomy, and no role for chemoprevention for her original DCIS diagnosis. Aso her Invasive cancer was HR Negative. IMAGING (04/05/2023 11:02 EST Echo TransTHORacic TTE Complete) 1. Normal left ventricular size and systolic function. 2. Estimated ejection fraction 60-65%. 3. No regional wall motion abnormalities. 4. GLS -25%. 5. Sclerotic aortic valve without significant stenosis or regurgitation. 6. Compared to previous study from 01/09/23 , there is no significant change. (10/19/2020 10:26 EDT BD Bone Density DEXA Axial Skeleton) 1. There is low bone mass (osteopenia) according to the WHO classification. 2. FRAXregistered Report: 10-y risk of a major fracture is 13 % and a hip fracture is 1.4 %. (02/28/2022 13:44 EST OO. MG Breast Consult) STUDY REVIEWED: Enhanced MRI of the bilateral breasts dated 12/16/2021 from [facility]. COMPARISON EXAMS: Mammograms from 05/20/2021, 11/18/2020, specimen image of the right breast from 06/19/2020 biopsy images of the right breast from 05/26/2020, bilateral diagnostic mammogram and left breast ultrasound from 05/18/2020, screening mammogram from 05/13/2020, and comparison mammogram from CLINICAL HISTORY: Review of imaging requested for a patient with a history of right breast DCIS in 2020 with new segmental enhancement on outside MRI in the left breast. FINDINGS: On May 13, 2020 the patient had a bilateral screening mammogram. Only 2D images were provided. The breast tissue is heterogeneously dense which can obscure small masses. An oval partially circumscribed mass was noted in the left breast measuring 9 mm centrally which was subsequently proven to represent a benign cyst. An area of architectural distortion was noted in the right breast captured on a screen capture CC image centrally. Several punctate calcifications in the right breast were also noted. On a subsequent diagnostic exam the area of architectural distortion appear to persist centrally, only identified on screen capture images. This underwent stereotactic biopsy with pathology minute focus of intermediate grade DCIS. ER/NC positive. This was marked with a barbell shaped clip. The patient went on to have a breast MRI at [facility] which demonstrated marked background enhancement and findings consistent with biopsy in the right breast but no other suspicious abnormalities noted. The patient went on to have right breast excision at [facility] with final pathology demonstrating a small focus of residual DCIS intermediate nuclear grade, cribriform and solid types with comedonecrosis measuring at least 1.5 mm with adjacent prior biopsy site. Margins were negative. The patient went on to have outside postsurgical bilateral mammograms in October 2020 and in April 2021 demonstrating expected post treatment changes in the right breast and no suspicious findings in the left breast. The patient then had an outside breast MRI on December 16, 2021. On the outside breast MRI there ismild to moderate background parenchymal enhancement. There are postsurgical changes consistent with prior right breast lumpectomy and radiation change. As reported on the outside breast MRI report, there is clumped like segmentally distributed enhancement in the left breast in the 12:00 radian from anterior to middle depth. This is best identified on series 23547 images 60-76 and sagittal image 80/134. No other suspicious findings are identified bilaterally. This area appears more pronounced when compared to the prior breast MRI where extensive background parenchymal enhancement wasnoted. IMPRESSION: 61-year-old with a history of right breast DCIS identified mammographically as an area of architectural distortion which underwent lumpectomy with negative margins in 2020. On a recent outside breast MRI from November 2021, qrb-csnl-nrah segmental enhancement was noted in the 12:00 radian of the LEFT breast from anterior to middle depth. MRI biopsy is recommended. RECOMMENDATIONS: Fij-pzlp-qkij segmentally distributed enhancement in the LEFT breast at 12:00 for which MRI guided biopsy is recommended. This likely would not be definitively correlated on ultrasound. (03/28/2022 11:52 EST MRI. Breast Biopsy w/ MRI Guide Left) Successful, uncomplicated UZF-pvuqmz-tidxreud core biopsy of the left breast. (07/07/2022 11:11 EDT MG. US Breast Axilla Or Upper Ext Left) Left axillary lymph nodes appear normal. There is no evidence of lymphadenopathy Appropriate action should be taken. BI-RADS Category 6: KNOWN BREAST CARCINOMA RELEVANT PATHOLOGY (04/01/2022 09:08 EST MG. Breast Biopsy Consult) Left breast, 12 o'clock, middle, core biopsy: - At least ductal carcinoma in situ (high nuclear grade, cribriform and solid types, with comedonecrosis and calcifications), with areas highly suspicious for invasive/microinvasive carcinoma, see microscopic description. - Immunohistochemical stains for receptor studies show that the DCIS is negative for both ER and NC, see synoptic report. Negative for ER and NC. Genetics 05/18/2022, 06/10/2022,Left partial mastectomy with Tosin-Nursing Program Chair (06/23/2022 13:51 EST MG. Breast Biopsy Consult) left breast, lumpectomy: - Invasive ductal carcinoma, grade 3, measuring at least 15 mm (gross measurement), with associatedextensive ductal carcinoma in situ (high nuclear grade, solid and micropapillary types, with comedonecrosis and calcifications, extending into the epidermis), positive for extensive lymphovascular invasion, with associated biopsy site, with DCIS located <1 mm from the lateral, posterior, and superior margins, with invasive carcinoma located mm from the superior margin, see microscopic description and synoptic report. Microscopic Description Immunohistochemical stains for receptor studies performed on block 1Q show that the invasive carcinoma is negative for ER, negative for NC, and positive for HER2 (score of 3+). Additionally, immunohistochemical stains for Melan-A and CK7 performed on block 1K support the above diagnosis of Paget's disease. The DCIS present is fairly extensive and is seen in 36 out of 49 tissue sections (entirely submitted specimen). Slides for conference: 1C, 1H, 1K, 1Q, 1V Block for ancillary studies: 1Q Synoptic Report 1: Breast Invasive Carcinoma - Resection Specimen Procedure: Excision (less than total mastectomy) Specimen Laterality: Left Tumor Histologic Type: Invasive carcinoma of no special type (ductal) Histologic Grade (Anaid Histologic Score): Glandular (Acinar) / Tubular Differentiation: Score 3 Nuclear Pleomorphism: Score 3 Mitotic Rate: Score 2 Overall Grade: Grade 3 (scores of 8 or 9) Tumor Size: 15 Millimeters (mm) Tumor Focality: Single focus of invasive carcinoma Ductal Carcinoma In Situ (DCIS): Present, Positive for extensive intraductal component (EIC) Lobular Carcinoma In Situ (LCIS): Not identified Tumor Extent Tumor Extent: DCIS involves nipple epidermis (Paget disease of the nipple) Lymphatic and / or Vascular Invasion: Present, Extensive Treatment Effect in the Breast: No known presurgical therapy Margins Margin Status for Invasive Carcinoma: All margins negative for invasive carcinoma Distance from Invasive Carcinoma to Closest Margin: 1 mm Closest Margin(s) to Invasive Carcinoma: Superior Margin Status for DCIS: All margins negative for DCIS Distance from DCIS to Closest Margin: Less than 1 mm Closest Margin(s) to DCIS: Posterior; Superior; Lateral Regional Lymph Nodes Regional Lymph Node Status: Not applicable (no regional lymph nodes submitted or found) Distant Metastasis pTNM Classification (AJCC 8th Edition) pT Category: pT1c pN Category: pN not assigned (no nodes submitted or found) (11/04/2022 10:41 EDT MRI. Breast w/ + w/o Contrast Bilateral) Finding 1: Postsurgical changes with non-mass enhancement surrounding the postsurgical seroma and extending anteriorly towards the incision site for the central mastectomy, see above. No discrete masses observed. Findings remain suspicious for residual disease, particularly given the close/positive surgical margins. Finding 2: Expected post therapeutic changes right breast. BI-RADS Category 4: SUSPICIOUS ABNORMALITY WORKSTATION ID: [id number] INTERVAL HISTORY: CT CAP TODAY Review of Systems Ms Galeano follows up in clinic today. She notes she is feeling well today. She states she has no new health concerns. She denies blurry vision, difficulty swallowing, abnormal taste, abnormal senseof smell, bowel or bladder problems, rash, fever, nausea, vomiting, diarrhea, swelling or neuropathy. All other systems have been reviewed and are negative apart from mentioned here and above in Interval History. Physical Exam Vitals & Measurements T:36.2C HR:74(Monitored) RR:16 BP:112/61 HT:157.2cm WT:70.200kg(Dosing) WT:70.2kg BMI:28.41 Physical Exam: ECO Pain: 0 General:Alert, conversant, and answering questions appropriately; in no acute distress. Psych:Normal mood and affect, cooperative. Speech fluent thought process linear HEENT:Face is symmetrical. Pupils are equal bilaterally and sclera are without icterus or injection. Neck:Midline, Supple, no carotid bruits. Cardiac:Heart is regular in rate and rhythm. No murmurs or rubs. Lungs:Lungs are clear to auscultation bilaterally without wheezes, rales, or rhonchi. Abdomen:Soft, non-distended and non-tender to palpation. Normoactive bowel sounds are present. Extremities:No peripheral edema. No erythema or swelling to joints. Neuro:Alert and oriented x3. No focal deficits noted. Skin:Warm, dry, no lesions or rashes noted. Images (07/05/2023 08:[address] Abdomen and Pelvis w/ Contrast) 1. Mildly increase in size of enlarged subcarinal lymph node, possibly inflammatory. Reassess on routine surveillance. 2. No metastasis in the abdomen or pelvis. 3. Unchanged previously characterized hemangioma in the caudate lobe (07/05/2023 08:[address] Thorax w/ Contrast) 1. Mildly increase in size of enlarged subcarinal lymph node, possibly inflammatory. Reassess on routine surveillance. 2. No metastasis in the abdomen or pelvis. 3. Unchanged previously characterized hemangioma in the caudate lobe. Assessment/Plan Gertrude is a 63-year-old postmenopausal lady withscreening detected RIGHT BREAST DCIS, which is ER 91-100% positive, NC 21-30% positive in June 2020- Status post right partial mastectomy for which she completed adjuvant radiation and on Anastrozole for chemo prevention. Dueto dense breast tissue, she also gets supplemental MRI along with annual Mammogram. MRI breast Nov 2021 noted erb-elhr-bfih segmental enhancement in the 12:00 radian of the LEFT breast from anterior to middle depth. MRI biopsy performed 04/01/2022 showed ductal carcinoma in situwith concern for microinvasion/invasive carcinoma, also with Pagets disease. Dr Montemayor, performed Lumpectomy 06/10/2022 (Nipple areolar complex was excised, no Bates Lymph node biopsy was performed) and now Pathology showed Invasive Ductal Carcinoma, Grade 3 whichis ER/NC- HER2+. pT1CNX At this point, due to upgrade to IDC, after discussion at tumor board, plan for proceeding with adjuvant chemotherapy (after d/w pt, TCHP was decided), followed by LEFT mastectomy (+/- Rt mastectomy), and atleast a Left SNL (vs left ax dissection) . left Ax US on 07/04/22 did not show any abnormal LN merced. Staging scans showed indeterminate liver lesion 1.7 cm- MRI confired no mets. She presented to the [facility] for another cycle of chemotherapy on 07/28/22 when routine labs demonstrated an elevated Cr at 7.36, increased from a baseline of 0.8, and anion gap metabolic acidosis with a bicarb of 13 and AG 18 likely pre-renal acute renal injury secondary to dehydration from nausea/vomiting.Hospitalized 08/17-08/20 for ARF and also found to haveCdiff infection which improved with aggressive fluid hydration, and PO vancomycin . Subsequently Carbplatin was held. PO van,c Px was continued. She completed TCHP x6 and had BL mastectomy on 12/23/22- for ypT0Nx. Recent admission for Diarrhea/Vx/ARF- which resolved with IVF resuscitation. After discussion, decision was made to pursue adjuvant Trastuzumab only - as no indication for change to Ado Trastuzumab and due to recurrent ARF from diarrhea sec to pertuzumab. She is now on singleagent every 3 weeks Trastuzumab. She is also now off endocrine therapy as she has had BL mastectomy, and no role for chemoprevention for her original DCIS diagnosis. Aso her Invasive cancer was HR Negative. PLAN: Breast, Invasive ductal carcinoma, grade 3 pT1cNx ER/NC- HER2+ s/p central Lumpectomy and no SNL- then with TCHP followed by BL mastectomy -Dr Donovanateral mastectomy 12/23/2022, with attempted LN biopsy- none removed. [id number]/23/2022 -continue Trastuzumab, next scheduled 07/12/2023-due tograde 4diarrhea- pertuzumab was discontinued 12/29/2022 -ECHO 04/05/2023 -CT CAP 07/05/2023 showedmildly increase in size of enlarged subcarinal lymph node, possibly inflammatory reassess on routine surveillance- CT CAP ordered with follow up DCIS, which is ER 91-100% positive, NC 21-30% positive, sp right partial mastectomy in past and nowS/P BL mastectomy - Ct Anastrozole x5 years- hold during chemotherapy- now that she is s.p BL mastectomy- and invasive cancer was ER/NC- stopped Anastrozole. -saw genetics 05/18/2022 Diarrhea - improved Hospitalization 08/17-08/20/2022 ARF/ Cdiff infection, continue to monitor with follow up Vancomycin 125mg PO BID prophylactic given severe C diff infection and need for ongoing chemotherapy- now completed. Another hospitalization with diarrhea, ARF, hypovolemic shock- 01/18/23, this time was not CDIFF. -stopped Pertuzumab last dose 12/29/2022 Mild leukocytosis and thrombocytosis -Likely sec to pre med steroids Bone Health -Alendronate -Osteopenia on scan from 10/19/2020 Follow up in 3 months with labs and follow up scan Attestation -WASHINGTON Lara spent 30 minutes of discrete time performing the activities of this visit. Activities include: xreview of the medical record xobtaining a history xphysical exam/evaluation xcounseling/educating patient/family/caregiver _discussion/referral to other healthcare professional xdocumenting care in the medical record xindependent interpretation of results xcommunication of results to patient/family/caregiver xcoordination of care Problem List/Past Medical History Ongoing Anxiety Depression Ductal carcinoma in situ (DCIS) of right breast Heartburn Hiatal hernia Hypertension Hypovitaminosis D Malignant neoplasm of left breast Pre-op exam TMJ (dislocation of temporomandibular joint) Procedure/Surgical History Bilateral mastectomy| Service Date: 3Partial mastectomy of left breast| Service Date: 3Biopsy of breast| Service Date: 2Right breast| Service Date: 1Biopsy of breast| Service Date: 05/26/2020X-ray| Service Date: 11/02/2018sinus surgerytubal ligationoral surgeryMRI of breast Medications acetaminophen, 1000 mg= 2 tab, PO, ONCE acetaminophen(Tylenol), 500 mg, PO escitalopram(escitalopram 20 mg oral tablet), See Instructions, 11 refills lisinopril(lisinopril 20 mg oral tablet), 20 mg= 1 tab, PO, Daily, 11 refills loratadine(Claritin), See Instructions ondansetron(ondansetron 8 mg oral tablet), 8 mg, PO, q8h, PRN, 3 refills prochlorperazine(prochlorperazine 10 mg oral tablet), 10 mg, PO, q6h, PRN, 5 refills Allergies NKA Social History Smoking Status Never smoked cigarettes Alcohol Use:Current Frequency:1-2 times per year Employment/School Status:Employed Exercise Times per week:1-2 times/week Exercise type:Walking Nutrition/Health Type of diet:Regular Sexual Sexually active:Yes Current partners:1 Substance Abuse - Denies Substance Abuse Tobacco - Denies Tobacco Use Family History Arthritis: Maternal Uncle. Breast cancer: MGM (Dx at 59). Breast cancer: Unknown (Dx at 67). Diabetes: MGF. Hyperlipidemia..: Mother. Ovarian cancer: Unknown. Seizure: Father. Thyroid disease: Mother. Health Status Family Member(s) Immunizations Vaccine Date Status influenza virus vaccine, inactivated 02/09/2023 Given Comments : Linda Gomez Lpn SARS-CoV-2 (COVID-19) mRNA-1273 vaccine 04/22/2021 Recorded SARS-CoV-2 (COVID-19) mRNA-1273 vaccine 06/12/2020 Recorded Comments : 2021-04-23: Historical information-source unspecified SARS-CoV-2 (COVID-19) mRNA-1273 vaccine 05/14/2020 Recorded Comments : 2021-04-23: Historical information-source unspecified influenza virus vaccine, inactivated 02/28/2019 Given hepatitis B adult vaccine 07/03/2018 Given hepatitis B adult vaccine 02/01/2018 Given influenza virus vaccine, inactivated 02/01/2018 Given hepatitis B adult vaccine 12/28/2017 Given tetanus/diphtheria/pertuss, acel (Tdap) 12/01/2017 Given tetanus/diphtheria/pertuss, acel (Tdap) 03/21/2008 Recorded Recommendations Health Maintenance Pending(in the next year) Due Adult COVID-19 Vaccination due07/04/23Unknown Frequency Adult Social Determinants of Health Screening due07/04/23Unknown Frequency Cervical Cancer Screening due07/04/23Unknown Frequency Colorectal Cancer Screening due07/04/23Unknown Frequency Pneumococcal Vaccine Adults and Adolescents with Chronic Illness due07/04/23One-time only Shingles Vaccine due07/04/23One-time only Due In Future Adult Influenza Vaccine not due until10/22/23and every 1year Body Mass Index not due until06/21/24and every 366day Satisfied(in the past 1 year) Satisfied Adult Influenza Vaccine on02/09/23.Satisfied by MINDI Purdy Angela Body Mass Index on04/05/23.Satisfied by RICARDO Melton, [place] King Lab Results 30 Day Labs Last Updated 07/05/23 14:52 07/05/23 1452 Estimated CrCl49.62 07/05/23 0818 Estimated CrCl48.61 07/05/23 0813 Cret, POC1.2 07/05/23 0751 Hct30.9L Hgb10.0L MCH31.2 MCHC32.4 MCV96.3H Pmrq113 RBC3.21L WBC5.90 MPV8.2L Immature Gran%0.3 Neut%66.7 Lymph%22.9 Amelia%7.1 Baso%1.0 Eos%2.0 Immat Gran, Abs0.02 Neut, Abs3.93 Lymph, Abs1.35 Amelia, Abs0.42 Baso, Abs0.06 Eos, Abs0.12 Type of Diff:AUTO RDW14.5H Anion Gap14 BUN37H Ca9.1 Cl-105 GGY512E Cret1.09H Glu94 K4.8 Na140 eGFR CKD-EPI58L Alk Phos82 ALT23 AST19 T Bili0.1 Alb4.2 Prot7.2 [1]CT Thorax w/ Contrast; MD Clifton, Emilio Valdez 07/05/2023 08:25 EDT Electronic Signature on File CC: Maggy Thomason MD [address] [place] [id number] Electronically Reviewed/Signed by: WASHINGTON Sanchez Author Signature Dt/Tm:07/07/2023 04:46 PM Division of Hematology Oncology [facility] Patient Care team information Care Team Personnel Name: Blayne Gerardo Amy E Position: Pharmacist Member Role: Pharmacy - Lifetime Address: Address: [address] [address] [place] Name: Blayne Solares Christine A Position: Pharmacist Schedule II Member Role: Pharmacy - Lifetime Name: Blayne Cox Kimberly Position: Pharmacist BCMA Member Role: Pharmacy - Lifetime Address: Address: [address] [address] [place] Name: JASPER Brambila Jordan Z Position: Physician Poker Dealer - Hem/Onc Member Role: Lifetime Relationship Address: Address: [address] [place] [address] [place] Name: Yamileth Morales Position: MOA Schedule II Member Role: HIS Lifetime Name: WASHINGTON Covington Shari A Position: Nurse Pract - Family Med Member Role: Primary Care Provider Address: Address: [address] [place] [address] Care Team Related Persons Name: SANDRINE GALEANO Address: [place] Address: home [address] [facility] [place] [id number]"
--- OUTSIDE RECORDS SUMMARY | 2023-11-07 02:27 | External Medical Summary | Continuity of Care Document ---
Author Name Unknown Organization [facility] Address [address] [place] [id number] Care Team Providers Care Storage Administrator Name Role Phone Magaly Covington Primary Care Physician [phone] [id number] Date(s): 07/05/23 - 07/05/[address] [phone] Discharge Disposition: Home or Self Care Attending [...] TAKE ONE TABLET BY MOUTHEVERY DAY, Pharmacy: [facility] Start Date: 04/11/23 Status: Ordered lisinopril 20 mg oral tablet Start: 04/11/23 15:01:00 EST, 1 tab, PO, Daily, Disp# 30 tab, Refills: 11, Pharmacy: [id number] Start Date: 04/11/23 Status: Ordered ondansetron 8 mg oral tablet Start: 04/05/23 13:22:00 EST, 8 mg =, PO, q8h, Disp# 30 tab, Refills: 3, PRN: nausea and vomiting, Pharmacy: [facility] Start Date: 04/05/23 Status: Ordered prochlorperazine 10 mg oral tablet Start: 07/07/22 7:00:00 EDT, 10 mg =, PO, q6h, Disp# 40 tab, Refills: 5, PRN: nausea and vomiting, Pharmacy: [facility] Start Date: 07/07/22 Status: Ordered Tylenol [...] Not identified. Prognostic markers: ER:Positive, strong staining(91-100%). [place]: Positive, strong staining ((21-30%) 5xr lumbar spine [...] hital hernia. Results Laboratory List Name Date Creatinine, POC (RAD) (CREATININE,POC (R AD)) 07/05/23 Most recent to oldest [Reference Range]: 1 Estimated CrCl 49.62 mL/min (07/05/23 2:52 PM) Cret, POC [0.6-1.3 mg/dL] 1.2 mg/dL (07/05/23 8:13 AM) Radiology Reports * Exam Date Time Procedure Performing Provider Status 07/05/23 8:[address] Thorax w/ Contrast [place] Elmore; Eleazar ordoñez Notes: (CT Thorax w/ Contrast) Reason For Exam: 63 yo female Breast, Invasive ductal carcinoma, Small areaof hypodensity within the caudate lobe CT Thorax w/ Contrast EXAMINATION: CT Abdomen and Pelvis w/ Contrast, CT Thorax w/ Contrast CLINICAL HISTORY: C50.919: Malignant neoplasm of unspecified site of unspecif; 63 yo female Breast, Invasive ductal carcinoma, Small area of hypodensity within the caudate lobe bilateral mastectomy 12/23/2022, COMPARISON: CT chest abdomen pelvis 01/16/2023 and priors. MR abdomen 08/12/2022. TECHNIQUE: CT Abdomen and Pelvis w/ Contrast, CT Thorax w/ Contrast CONTRAST: Contrast Type (IV): Omnipaque 350 Contrast Volume (IV) in ml: 100.00 DOSE: Total Reported Dose Length Product (DLP) = 670.15 mGy.cm FINDINGS: CHEST Pleura and Lungs: Unchanged scattered punctate pulmonary nodules in the right lung. No new pulmonary nodule. No pleural effusion. Biapical scarring. Central airways: No endobronchial lesion. Lymph nodes: No lymphadenopathy. Precarinal lymph node maintains a fatty hilum and measures 9.6 mm. Thyroid and Mediastinum: Normal thyroid. Unchanged small hiatal hernia. Heart and Great vessels: Normal heart size.. No pericardial effusion. Right chest Mediport with catheter tip in the superior cavoatrial junction. ABDOMEN Liver, Gallbladder \T\ bile ducts: Unchanged 1.6 cm hypodensity within the caudate lobe, previouslycharacterized as hemangioma on MR 08/12/2022. No new liver lesion. Normal gallbladder. No abnormal biliary dilation. Pancreas: Fatty changes of the pancreatic head. Spleen: Normal Adrenals: Normal Kidneys, collecting system and ureters: Normal Retroperitoneum, lymph nodes, and vessels: No lymphadenopathy Bowel \T\ Mesentery: Nonobstructed bowel. PELVIS Bladder: Unremarkable for degree of distention. Reproductive organs: Surgical clips in bilateral adnexa. No mass. Extraperitoneal, lymph nodes, vessels: No lymphadenopathy. Osseous and body wall: Bilateral mastectomy. Degenerative changes of the spine. No suspicious osseous lesion. IMPRESSION: 1. Mildly increase in size of enlarged subcarinal lymph node, possibly inflammatory. Reassess on routine surveillance. 2. No metastasis in the abdomen or pelvis. 3. Unchanged previously characterized hemangioma in the caudate lobe. Dr. Gabriele Leach is the dictating resident. Finalized reports status indicates that the attendinghas reviewed the images and report, and agrees with the interpretation. Preliminary report status should be regarded as NOT interpreted by the attending radiologist. [place] Act 112: This study does not meet the requirements of [place] Act 112. Workstation ID: [id number] Final Dictated by:MD Leach Anthony Robert Dictated DT/TM:07/05/2023 2:27 Resident:MD Leach Anthony Robert Signed by:MD Lazo Seth Millard Signed (Electronic Signature):07/05/2023 2:26 p * Exam Date Time Procedure Performing Provider Status 07/05/23 8:[address] Abdomen and Pelvis w/ Contrast Tray nor, [place]; Final Notes: (CT Abdomen and Pelvis w/ Contrast) Reason For Exam: 63 yo female Breast, Invasive ductal carcinoma, Small area of hypodensity within the caudate lobe CT Abdomen and Pelvis w/ Contrast EXAMINATION: CT Abdomen and Pelvis w/ Contrast, CT Thorax w/ Contrast CLINICAL HISTORY: C50.919: Malignant neoplasm of unspecified site of unspecif; 63 yo female Breast, Invasive ductal carcinoma, Small area of hypodensity within the caudate lobe bilateral mastectomy 12/23/2022, COMPARISON: CT chest abdomen pelvis 01/16/2023 and priors. MR abdomen 08/12/2022. TECHNIQUE: CT Abdomen and Pelvis w/ Contrast, CT Thorax w/ Contrast CONTRAST: Contrast Type (IV): Omnipaque 350 Contrast Volume (IV) in ml: 100.00 DOSE: Total Reported Dose Length Product (DLP) = 670.15 mGy.cm FINDINGS: CHEST Pleura and Lungs: Unchanged scattered punctate pulmonary nodules in the right lung. No new pulmonary nodule. No pleural effusion. Biapical scarring. Central airways: No endobronchial lesion. Lymph nodes: No lymphadenopathy. Precarinal lymph node maintains a fatty hilum and measures 9.6 mm. Thyroid and Mediastinum: Normal thyroid. Unchanged small hiatal hernia. Heart and Great vessels: Normal heart size.. No pericardial effusion. Right chest Mediport with catheter tip in the superior cavoatrial junction. ABDOMEN Liver, Gallbladder \T\ bile ducts: Unchanged 1.6 cm hypodensity within the caudate lobe, previouslycharacterized as hemangioma on MR 08/12/2022. No new liver lesion. Normal gallbladder. No abnormal biliary dilation. Pancreas: Fatty changes of the pancreatic head. Spleen: Normal Adrenals: Normal Kidneys, collecting system and ureters: Normal Retroperitoneum, lymph nodes, and vessels: No lymphadenopathy Bowel \T\ Mesentery: Nonobstructed bowel. PELVIS Bladder: Unremarkable for degree of distention. Reproductive organs: Surgical clips in bilateral adnexa. No mass. Extraperitoneal, lymph nodes, vessels: No lymphadenopathy. Osseous and body wall: Bilateral mastectomy. Degenerative changes of the spine. No suspicious osseous lesion. IMPRESSION: 1. Mildly increase in size of enlarged subcarinal lymph node, possibly inflammatory. Reassess on routine surveillance. 2. No metastasis in the abdomen or pelvis. 3. Unchanged previously characterized hemangioma in the caudate lobe. Dr. Gabriele Leach is the dictating resident. Finalized reports status indicates that the attendinghas reviewed the images and report, and agrees with the interpretation. Preliminary report status should be regarded as NOT interpreted by the attending radiologist. [place] Act 112: This study does not meet the requirements of [place] Act 112. Workstation ID: [id number] Final Dictated by:MD Leach Anthony Robert Dictated DT/TM:07/05/2023 2:27 Resident:MD Leach Anthony Robert Signed by:MD Lazo Seth Millard Signed (Electronic Signature):07/05/2023 2:26 p Social History Social History Type Response Smoking Status Never smoked cigaret joon Sex Female Patient Care team information Care Team Personnel Name: Blayne Gerardo Amy E Position: Pharmacist Member Role: Pharmacy - Lifetime Address: Address: [place] [address] [place] Name: Blayne Solares Christine A Position: Pharmacist Schedule II Member Role: Pharmacy - Lifetime Name: Blayne Cox Kimberly Position: Pharmacist BCMA Member Role: Pharmacy - Lifetime Address: Address: [place] [address] [place] Name: JASPER Brambila Jordan Z Position: Physician Aerial Planting And Cultivation Manager - Hem/Onc Member Role: Lifetime Relationship Address: Address: [address] [place] [address] Name: Yamileth Morales Position: MOA Schedule II Member Role: HIS Lifetime Name: WASHINGTON Covington Shari A Position: Nurse Pract - Family Med Member Role: Primary Care Provider Address: Address: [address] [place] [address] Care Team Related Persons Name: SANDRINE ANSARI Address: [place] Address: home [address] [place], [place] [id number]
--- OUTSIDE RECORDS SUMMARY | 2023-11-07 02:27 | External Medical Summary | Continuity of Care Document ---
Author Name Unknown Organization [place] [address] [address] Address [address] [facility] [address] [place] [id number] Care Team Providers Care Ex Chef Name Role Phone Magaly Covington Primary Care Physician [phone] [id number] Date(s): 08/23/23 - 08/23/[address] [place] [address] [facility] [address] [facility], [address], Entrance A [place] [address] [phone] Encounter Diagnosis History of bilateral breast cancer(Discharge Diagnosis) - 08/23/23 S/P bilateral mastectomy(Discharge Diagnosis) - 08/23/23 Discharge Disposition: Home or Self Care Attending Physician: WASHINGTON Moreno Nichole D Referring Physician: WASHINGTON Covington Shari A Allergies, [...] Claritin Start: 08/03/22 8:33:00 EDT, See Instructions, 1 po daily PRN, PRN: as needed for allergy symptoms Start Date: 08/03/22 Status: Ordered escitalopram 20 mg oral tablet Start: 04/11/23 15:01:00 EST, See Instructions, Disp# 30 tab, Refills: 11, TAKE ONE TABLET BY MOUTHEVERY DAY, Pharmacy: [facility] Start Date: 04/11/23 Status: Ordered lisinopril 20 mg oral tablet Start: 04/11/23 15:01:00 EST, 1 tab, PO, Daily, Disp# 30 tab, Refills: 11, Pharmacy: [id number] Start Date: 04/11/23 Status: Ordered ondansetron 8 mg oral tablet Start: 04/05/23 13:22:00 EST, 8 mg =, PO, q8h, Disp# 30 tab, Refills: 3, PRN: nausea and vomiting, Pharmacy: [facility] Start Date: 04/05/23 Status: Ordered prochlorperazine 10 mg oral tablet Start: 07/07/22 7:00:00 EDT, 10 mg =, PO, q6h, Disp# 40 tab, Refills: 5, PRN: nausea and vomiting, Pharmacy: [facility] Start Date: 07/07/22 Status: Ordered Tylenol Start: 05/04/17 8:30:00 EST, 500 mg =, PO, as needed Start Date: 05/04/17 Status: Ordered Mental Status 08/23/23 Barriers to Learning one year Vision imp airment, Other: glasses Mandatory Health Literacy Documentation Yes Health Literacy Communication Barriers N ever Primary Language Singaporean Problem List Condition Confirmation Course Effective Dates [...] Diagnosis Diagnosis Type Effective Dates Health Status Clinical Service Informant S/P bilateral mastectomy Discharge Diagnosis 08/23/23 Non-Specified History of bilateral breast cancer Discharge Diagnosis 08/23/23 Procedures Procedure Date Related Diagnosis Body Site [...] Not identified. Prognostic markers: ER:Positive, strong staining(91-100%). [place]: Positive, strong staining ((21-30%) 5xr lumbar spine [...] Most recent to oldest [Reference Range]: 1 Temperature [36.5-37.9 DegC] 36.1 DegC *LOW* (08/23/23 10:41 AM) Heart Rate 70 bpm (08/23/23 10:41 AM) Blood Pressure 105/73mmHg (08/23/23 10:41 AM) Cuff Pulse Pressure 32 mmHg (08/23/23 10:41 AM) BP Location # 1 Right Arm (08/23/23 10:41 AM) Social History Social History Type Response Smoking Status Never smoked cigaret joon Sex Female Patient Care team information Care Team Personnel Name: Blayne Gerardo Amy E Position: Pharmacist Member Role: Pharmacy - Lifetime Address: Address: [address] [place] [address] Name: Blayne Solares Christine A Position: Pharmacist Schedule II Member Role: Pharmacy - Lifetime Name: Blayne Cox Kimberly Position: Pharmacist BCMA Member Role: Pharmacy - Lifetime Address: Address: [address] [address] Name: Yamileth Morales Position: MOA Schedule II Member Role: HIS Lifetime Name: WASHINGTON Covington Shari A Position: Nurse Pract - Family Med Member Role: Primary Care Provider Address: Address: [address] [place] [address] Care Team Related Persons Name: SANDRINE ANSARI Address: [place] Address: home [address] [facility] [place] [phone]
--- OUTSIDE RECORDS SUMMARY | 2023-11-07 02:28 | External Medical Summary | Continuity of Care Document ---
Author Name Unknown Organization [facility] Address [address] [place] [id number] Care Team Providers Care Force Dispatcher Name Role Phone TamaraMagaly thompson [facility] Primary Care Physician [phone] Encounter [facility] [id number] Date(s): 05/10/23 - 05/10/23 [facility] [place] [facility] [address] [place] [phone]- [phone] Encounter Diagnosis HER2-positive carcinoma of breast(Discharge Diagnosis) - 05/10/23 Discharge Disposition: Home or Self Care Attending Physician: MD Thomason Monali K Referring Physician: MD Thomason Monali K Allergies, Adverse Reactions, Alerts No Known Allergies Functional Status 05/10/23 Gait Steady Immunizations Given and Recorded Vaccine [...] TAKE ONE TABLET BY MOUTHEVERY DAY, Pharmacy: [facility] Start Date: 04/11/23 Status: Ordered lisinopril 20 mg oral tablet Start: 04/11/23 15:01:00 EST, 1 tab, PO, Daily, Disp# 30 tab, Refills: 11, Pharmacy: [id number] Start Date: 04/11/23 Status: Ordered ondansetron 8 mg oral tablet Start: 04/05/23 13:22:00 EST, 8 mg =, PO, q8h, Disp# 30 tab, Refills: 3, PRN: nausea and vomiting, Pharmacy: [facility] Start Date: 04/05/23 Status: Ordered prochlorperazine 10 mg oral tablet Start: 07/07/22 7:00:00 EDT, 10 mg =, PO, q6h, Disp# 40 tab, Refills: 5, PRN: nausea and vomiting, Pharmacy: [facility] Start Date: 07/07/22 Status: Ordered Tylenol Start: [...] Informant HER2-positive carcinoma of breast Discharge Diagnosis 05/10/23 Non-Specified Procedures Procedure Date Related Diagnosis Body [...] Not identified. Prognostic markers: ER:Positive, strong staining(91-100%). [place]: Positive, strong staining ((21-30%) 5xr lumbar spine [...] to oldest [Reference Range]: 1 Patient Weight 66.7 kg (05/10/23 9:02 AM) Temperature [36.5-37.9 DegC] 36.7 DegC (05/10/23 9:02 AM) Heart Rate 83 bpm (05/10/23 9:02 AM) Respiratory Rate 20 br/min (05/10/23 9:02 AM) Blood Pressure 117/60mmHg (05/10/23 9:02 AM) Cuff Pulse Pressure 57 mmHg (05/10/23 9:02 AM) BP Location # 1 Right Arm (05/10/23 9:02 AM) Social History Social History Type Response Smoking Status Never smoked cigaret joon Sex Female Patient Care team information Care Team Personnel Name: Blayne Gerardo Amy E Position: Pharmacist Member Role: Pharmacy - Lifetime Address: Address: [place] [id number] Name: Blayne Solares Christine A Position: Pharmacist Schedule II Member Role: Pharmacy - Lifetime Name: Blayne Cox Kimberly Position: Pharmacist BCMA Member Role: Pharmacy - Lifetime Address: Address: [address] [address] [place] Name: JASPER Brambila Jordan Z Position: Physician Pipe Stripper - Hem/Onc Member Role: Lifetime Relationship Address: Address: [address] [place] [address] [place] Name: Yamileth Morales Position: MOA Schedule II Member Role: HIS Lifetime Name: WASHINGTON Covington Shari A Position: Nurse Pract - Family Med Member Role: Primary Care Provider Address: Address: [address] [place] [address] Care Team Related Persons Name: SANDRINE ANSARI Address: [place] Address: home [address] [facility] [place] [phone]
--- OUTSIDE RECORDS SUMMARY | 2023-11-07 02:28 | External Medical Summary | Continuity of Care Document ---
Author Name Unknown Organization [facility] Address [address] [id number] Care Team Providers Care Gear Straightener Name Role Phone TamaraMagaly thompson [facility] Physician [phone] Encounter [facility] [id number] Date(s): 05/31/23 - 05/31/23 [facility] [place] [facility] [address] [facility] [address] [place] [address]- [phone] Encounter Diagnosis Breast cancer in female(Discharge Diagnosis) - 05/31/23 Discharge Disposition: Home or Self Care Attending Physician: MD Thomason Monali K Referring Physician: MD Thomason Monali K Allergies, Adverse Reactions, Alerts No Known Allergies Functional Status 05/31/23 Gait Steady Immunizations Given and Recorded Vaccine [...] TAKE ONE TABLET BY MOUTHEVERY DAY, Pharmacy: [facility] Start Date: 04/11/23 Status: Ordered lisinopril 20 mg oral tablet Start: 04/11/23 15:01:00 EST, 1 tab, PO, Daily, Disp# 30 tab, Refills: 11, Pharmacy: [id number] Start Date: 04/11/23 Status: Ordered ondansetron 8 mg oral tablet Start: 04/05/23 13:22:00 EST, 8 mg =, PO, q8h, Disp# 30 tab, Refills: 3, PRN: nausea and vomiting, Pharmacy: [facility] Start Date: 04/05/23 Status: Ordered prochlorperazine 10 mg oral tablet Start: 07/07/22 7:00:00 EDT, 10 mg =, PO, q6h, Disp# 40 tab, Refills: 5, PRN: nausea and vomiting, Pharmacy: [facility] Start Date: 07/07/22 Status: Ordered Tylenol Start: 05/04/17 8:30:00 EST, 500 mg =, PO, as needed Start Date: 05/04/17 Status: Ordered Mental Status 05/31/23 Barriers to Learning one year Vision imp [...] Informant Breast cancer in female Discharge Diagnosis 05/31/23 Non-Specified Procedures Procedure Date Related Diagnosis Body [...] Not identified. Prognostic markers: ER:Positive, strong staining(91-100%). MS: Positive, strong staining ((21-30%) 5xr lumbar spine [...] to oldest [Reference Range]: 1 Patient Weight 68.0 kg (05/31/23 10:02 AM) Temperature [36.5-37.9 DegC] 36.2 DegC *LOW* (05/31/23 10:02 AM) Heart Rate 72 bpm (05/31/23 10:02 AM) Respiratory Rate 16 br/min (05/31/23 10:02 AM) Blood Pressure 116/51mmHg (05/31/23 10:02 AM) Cuff Pulse Pressure 65 mmHg (05/31/23 10:02 AM) BP Location # 1 Left Arm (05/31/23 10:02 AM) Social History Social History Type Response Smoking Status Never smoked cigaret joon Sex Female Patient Care team information Care Team Personnel Name: Blayne Gerardo Amy E Position: Pharmacist Member Role: Pharmacy - Lifetime Address: Address: [address] [address] [place] Name: Blayne Solares Christine A Position: Pharmacist Schedule II Member Role: Pharmacy - Lifetime Name: Blayne Cox Kimberly Position: Pharmacist BCMA Member Role: Pharmacy - Lifetime Address: Address: [address] Name: JASPER Brambila Jordan Z Position: Physician Tub Chucker - Hem/Onc Member Role: Lifetime Relationship Address: Address: [address] [place] [address] Name: Yamileth Morales Position: MOA Schedule II Member Role: HIS Lifetime Name: WASHINGTON C[place] Shari A Position: Nurse Pract - Family Med Member Role: Primary Care Provider Address: Address: [address] [place] [id number] Care Team Related Persons Name: SANDRINE ANSARI Address: [place] Address: home [address] [place] [id number]
[2023-11-07] MEDS: ESCITALOPRAM OXALATE 20 MG TAB PO SCH (07:28)
[2023-11-07 07:48] LABS: Basophils # (auto) 0.05 K/uL (0.00-0.20); Basophils % (auto) 1.1 %; Eosinophils # (auto) 0.07 K/uL (0.00-0.50); Eosinophils % (auto) 1.6 %; Hematocrit (blood only) 29.6 % (37.0-47.0); Hemoglobin 9.9 g/dl (12.0-16.0); Immature Granulocytes # (auto) 0.01 K/uL (0.01-0.20); Immature Granulocytes % (auto) 0.2 %; Lymphocytes # (auto) 1.06 K/uL (1.20-3.40); Lymphocytes % (auto) 23.8 %; Mean Corpuscular Hemoglobin 31.6 pg (25.0-34.0); Mean Corpuscular Hgb Conc 33.4 g/dL (32.0-36.0); Mean Corpuscular Volume 94.6 fL (80.0-100.0); Mean Platelet Volume 8.7 fL (9.4-12.4); Monocytes # (auto) 0.29 K/uL (0.11-0.59); Monocytes % (auto) 6.5 %; Neutrophils # (auto) 2.97 K/uL (1.40-6.50); Neutrophils % (auto) 66.8 %; Platelet Count 233 K/uL (130-400); RDW Coefficient of Variation 13.1 % (11.5-14.5); RDW Standard Deviation 45.4 fL (36.4-46.3); Red Blood Count 3.13 M/uL (4.20-5.40); White Blood Count 4.45 K/ul (4.8-10.8)
[2023-11-07 08:03] LABS: BUN Creatinine Ratio 29.7 (10-20); Calcium 8.5 mg/dl (8.6-10.3); Creatinine Clr Calc Pharmacy 38.9 ml/min; Est GFR (African American) 47.7 ml/min; Est GFR (Non-African American) 41.2 ml/min; Potassium 4.7 mmol/L (3.5-5.1)
[2023-11-07] MEDS ORDERED: HEPARIN SOD 5,000 UNIT/0.5 ML VIAL SQ SCH (09:00)
[2023-11-07] MEDS ORDERED: lisinopril 20 MG TAB PO SCH (09:00)
[2023-11-07 10:34] LABS: Adenovirus F 40/41 PCR Not Detected (NotDetected); Astrovirus PCR Not Detected (NotDetected); Campylobacter PCR Not Detected (NotDetected); Cryptosporidium PCR Not Detected (NotDetected); Cyclospora cayetanensis PCR Not Detected (NotDetected); Entamoeba histolytica PCR Not Detected (NotDetected); Enteroaggregative E.coli(EAEC) Not Detected (NotDetected); Enteropathogenic E.coli (EPEC) Not Detected (NotDetected); Enterotoxigenic E.coli (ETEC) Not Detected (NotDetected); Giardia lamblia PCR Not Detected (NotDetected); Norovirus GI/GII PCR Not Detected (NotDetected); Plesiomonas shigelloides PCR Not Detected (NotDetected); Rotavirus A PCR Not Detected (NotDetected); Salmonella PCR Not Detected (NotDetected); Sapovirus PCR Not Detected (NotDetected); Shiga-like Toxin E.coli (STEC) Not Detected (NotDetected); Shigella/Enteroinvasive E.coli Not Detected (NotDetected); Vibrio cholerae PCR Not Detected (NotDetected); Vibrio species PCR Not Detected (NotDetected); Yersinia enterocolitica PCR Not Detected (NotDetected)
[2023-11-07 10:46] LABS: Cdiff Toxin B Gene (2yr or >) Positive Cdiff Gene (Neg)
--- NOTE | 2023-11-07 11:09 | Electrocardiogram Report ---
Test Reason : Blood Pressure : / mmHG Vent. Rate : 071 BPM Atrial Rate : 071 BPM P-R Int : 126 ms QRS Dur : 088 ms QT Int : 410 ms P-R-T Axes : 040 056 057 degrees QTc Int : 445 ms Normal sinus rhythm Normal ECG No previous ECGs available Confirmed by Lloyd Hinds ([id number]) on 11/07/2023 11:09:32 AM Referred By: REFERRED SELF Confirmed By:Lloyd Hinds
[2023-11-07 12:14] LABS: Cdiff Antigen Positive; Cdiff Toxin A+B Negative Cdiff Toxin (Negative)
[2023-11-07 14:55] LABS: Basophils # (auto) 0.03 K/uL (0.00-0.20); Basophils % (auto) 0.6 %; Eosinophils # (auto) 0.04 K/uL (0.00-0.50); Eosinophils % (auto) 0.8 %; Hemoglobin 10.1 g/dl (12.0-16.0); Immature Granulocytes # (auto) 0.01 K/uL (0.01-0.20); Immature Granulocytes % (auto) 0.2 %; Lymphocytes # (auto) 0.89 K/uL (1.20-3.40); Lymphocytes % (auto) 17.5 %; Mean Corpuscular Hemoglobin 30.6 pg (25.0-34.0); Mean Corpuscular Hgb Conc 32.6 g/dL (32.0-36.0); Mean Corpuscular Volume 93.9 fL (80.0-100.0); Mean Platelet Volume 8.9 fL (9.4-12.4); Monocytes # (auto) 0.31 K/uL (0.11-0.59); Monocytes % (auto) 6.1 %; Neutrophils # (auto) 3.82 K/uL (1.40-6.50); Neutrophils % (auto) 74.8 %; Platelet Count 230 K/uL (130-400); RDW Coefficient of Variation 13.1 % (11.5-14.5); RDW Standard Deviation 44.9 fL (36.4-46.3)
--- NOTE | 2023-11-07 15:12 | Discharge Summary ---
Discharge Summary Date of Service November 07, 2023 Principal Dx & Hospital Course #1 = Principal Diagnosis (1) Diarrhea: Suspected colitis as seen on CT - already improving Stool biofire negative Cdiff gene positive, toxin negative - consistent with hx of cdiff - stools are improving, starting to be more formed - can use PRN imodium if needed Follow up with GI to consider colonoscopy as outpatient Stools improving day of discharge (2) ANABELA (acute kidney injury): Baseline Cr 1.37 October 04, 2023 Cr 2.37 on arrival - now down to 1.38 which is her baseline Received IV fluids Can continue lisinopril tomorrow 11/07 (3) Dehydration: Hgb has dropped but remains stable after recheck this afternoon. Suspect related to dehydration and rehydration. Plan Dispo: discharge to home today Notes For Next Care Provider Patient admitted for n/v/d that has improved with IV fluids. Stool biofire negative. treated supportively - CT scan showing resolving colitis. C.diff toxin negative - did send with PO sean that she can fill at the pharmacy if symptoms were to worsen consider outpatient GI follow up for colonoscopy Admission HPI Per Admitting Provider Bryant Galeano is a 63 year old female who presents to the ER with LUQ abdominal pain, vomiting and diarrhea since Monday. Symptoms started night into Monday morning. Initially with nausea, vomiting and sweating. She felt like she couldn't go to bathroom. After thi8s she started having waves of left sided abdominal pain. Diarrhea followed. On Monday her diarrhea was mucus with blood. Monday still mucus but no blood. Took Pepto-Bismol but just turned it dark brown. No bowel movement since this morning. No fever, chills, acute respiratory or urinary symptoms. Chronic cough which she blames on lisinopril and no worse than usual. She finished chemotherapy for breast cancer in June. During treatment had episode of diarrhea and separate episode of c. diff (July 2022). Discharge Exam General: NAD, VS as above HEENT: MMM Resp: normal respiratory effort, lungs clear to auscultation CV: RRR, no murmur, Abd: normal bowel sounds, non tender, no hepatosplenomegaly Extremities: Moves all extremities, no edema Neuro: A&O x3, Skin: intact, no lesions noted Updated Medication List Medication Instructions Recorded Confirmed Type acetaminophen 325 mg tablet 650 mg PO QID PRN Pain/Fever 07/29/20 11/06/23 History (Tylenol) escitalopram oxalate 20 mg tablet 20 mg PO DAILY 11/06/23 11/06/23 History lisinopril 20 mg tablet 20 mg PO DAILY 11/06/23 11/06/23 History ondansetron HCl 8 mg tablet 8 mg PO Q8H PRN Nausea And Vomiting 11/06/23 11/06/23 History vancomycin 125 mg capsule 125 mg PO Q6H 10 days #40 caps 11/07/23 Rx Hospital Stay Data Consultations 11/06/23 18:29 ED Decision to Admit Stat Diagnostic Imagining Performed Abdomen/Pelvis CT 11/06/23 14:50 CT SCAN OF THE ABDOMEN AND PELVIS WITHOUT IV CONTRAST CLINICAL HISTORY: Left flank pain. COMPARISON STUDY: Abdominal ultrasound dated 03/30/2012. TECHNIQUE: CT scan of the abdomen and pelvis is performed from the lung bases to the proximal femora. Images are reviewed in the axial, sagittal, and coronal planes. IV contrast was not administered for this examination. A dose lowering technique was utilized adhering to the principles of ALARA. CT DOSE: 1069.03 mGy.cm FINDINGS: Lung bases: The heart is normal in size and without pericardial effusion. The lung bases are clear noting mild dependent atelectasis. Findings suggest a history of previous right mastectomy. There is a small hiatal hernia. Liver: The unenhanced liver is normal in size, contour, and attenuation. There is no intrahepatic biliary ductal dilatation. Gallbladder: Unremarkable. Spleen: Normal in size and attenuation. Pancreas: The unenhanced pancreas is moderately atrophic and grossly unremarkable. Adrenal glands: Unremarkable. Kidneys: The unenhanced kidneys are normal in size and without hydronephrosis. No renal calculi are identified and no ureteral stone is seen. There is no evidence of contour deforming renal mass lesion. Abdominal vasculature: The abdominal aorta is normal in course and caliber noting mild atherosclerotic calcification. Bowel: There is no bowel obstruction. Question mild wall thickening of the left colon with faint surrounding infiltration. The appendix is multiple visualized and normal. Peritoneum: There is no intraperitoneal free air or abdominal ascites. There is a small fat-containing umbilical hernia. Lymphadenopathy: None. Pelvic viscera: The bladder, uterus, and adnexa are normal as visualized. Skeletal structures: No lytic or blastic lesions are seen. IMPRESSION: 1. Question a mild nonspecific colitis of the left colon. Correlate clinically. 2. No renal calculi are identified and there is no ureteral stone. 3. Additional findings as above. ACT 112: Negative or not required by law. Electronically signed by: Chandler Silva M.D. 11/06/2023 4:43 PM Pending Results Patient Have Any Pending Studies at Discharge: No Discharge Instructions Given to Patient (Per Discharging Provider) Ms. Galeano, Ed were hospitalized after having diarrhea that resulting in you being dehydrated and having an acute kidney injury. This has improved with IV fluids. Your diarrhea also is improving with time. The stools studies did not reveal any infectious process to cause your diarrhea. Would recommend focusing on good hydration over the next few days. Continue a low fiber diet until stools return back to normal. I have attached information about a low fiber diet below. Okay to use Imodium up to 3 times a day if needed. I have sent in oral vancomycin that you can use to treat the diarrhea if it were to worsen to have on had to treat a potential c.diff infection. You do NOT have to fill this if symptoms continue to improve. You are okay to resume lisinopril tomorrow 11/07 Recommend follow up with GI for colonoscopy in 6+ weeks. Activity: You can do normal everyday activities as your body allows. Take rest breaks if you feel tired. Do not overexert. Stop activity if you have pain, shortness of breath or feel dizzy. Follow-up appointments: Make an appointment with your primary care physician within one week of discharge. A copy of this summary will be sent to them. Every time you see your primary care physician, or any other doctor, bring your medication list, and a list of questions. CONTACT YOUR PRIMARY CARE PROVIDER if you experience any of the following: Shortness of breath or difficulty breathing Fevers or chills Feeling tired with normal activity or experiencing dizziness or fainting Difficulty following your treatment plan, or difficulty taking medications CALL 911 OR GO TO THE EMERGENCY DEPARTMENT if you experience any of the following: Severe abdominal pain or nausea/vomiting Severe chest pain, or chest pain that radiates (moves) to your jaw or arm Sudden, severe shortness of breath or difficulty breathing Thank you for allowing us to participate in your care. Total Time Total Time Spent Total Time Spent (In Minutes): Time spend day of discharge 35 minutes including direct patient care, me dication reconciliation, documentation, review of labs and images, and coordination of care. Coding Level of Care Code 08480 INP/OBS DISCH >30 MIN Diagnoses Diarrhea A09 Diarrhea type: infectious ANABELA (acute kidney injury) N17.9 Dehydration E86.0
[2023-11-07 15:30] VITALS: BP 112/73; RESP 16; TEMP 98.1; O2SAT 99
[2023-11-07 16:38] VITALS: PULSE 82
[2023-11-07] MEDS ORDERED: HEPARIN SOD 5,000 UNIT/0.5 ML VIAL SQ ONE (21:00)
== END 2023-11-07 17:44 | disposition home or self-care (01) | DRG 392 ==
LOC: ED 14:22 → INTOOBSV 20:37 → SUATTDRO 20:37 → 3E 20:37